=== PATIENT | female | born 1965 | race Caucasian/White ===

== ENCOUNTER 2016-11-16 06:48 | Inpatient (IN) | payer OTHER, MEDICAID ==
[2016-11-16] MEDS ORDERED: NS 1,000 ML IV ONE ×2 (07:01→07:59)
[2016-11-16 07:06] LABS: % IMMATURE GRANULYOCYTES 0.3 % (0.0-1.1); ABSOLUTE IMMATURE GRANULOCYTES 0.04 10^3/uL (0.00-0.10); ADD DIFF? NO; ADD MORPH? NO; ADD SCAN? NO; ATYPICAL LYMPHOCYTE FLAG 0 (0-99); FRAGMENT RBC FLAG 0 (0-99); HEMATOCRIT 47.2 % (38.0-47.0); HEMOGLOBIN 16.7 g/dL (12.6-16.3); LEFT SHIFT FLG 0 (0-99); LIPEMIA HEMOLYSIS FLAG 90 (0-99); MEAN CELL HEMOGLOBIN 31.7 pg (27.9-34.1); MEAN CELL HEMOGLOBIN CONCENTR. 35.4 g/dL (32.4-36.7); MEAN CELL VOLUME 89.7 fL (81.5-99.8); MEAN PLATELET VOLUME 10.1 fL (8.7-11.7); PLATELET CLUMPS FLAG 0 (0-99); PLATELET COUNT 330 10^3/uL (150-400); RED BLOOD CELL COUNT 5.26 10^6/uL (4.18-5.33); RED CELL DISTRIBUTION WIDTH 11.5 % (11.5-15.2)
[2016-11-16 07:15] LABS: INR 0.95 (0.83-1.16); PROTIME(PATIENT) 12.6 SEC (12.0-15.0)
[2016-11-16 07:16] LABS: APTT 25.2 SEC (23.0-38.0)
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
[2016-11-16 07:33] LABS: ALANINE AMINOTRANSFERASE 29 IU/L (9-52); ALBUMIN 4.1 g/dL (3.5-5.0); ALKALINE PHOSPHATASE 102 IU/L (38-126); ANION GAP 17 mEq/L (8-16); ASPARTATE AMINOTRANSFERASE 16 IU/L (14-46); BILIRUBIN,TOTAL 0.5 mg/dL (0.1-1.4); BILIRUBIN-CONJUGATED 0.2 mg/dL (0.0-0.5); BILIRUBIN-UNCONJUGATED 0.3 mg/dL (0.0-1.1); CALCIUM 9.6 mg/dL (8.5-10.4); CARBON DIOXIDE 19 mEq/l (22-31); CHLORIDE 101 mEq/L (97-110); GLOMERULAR FILTRATION RATE 58; POTASSIUM 4.7 mEq/L (3.5-5.2); SODIUM 137 mEq/L (134-144); TOTAL PROTEIN 7.5 g/dL (6.3-8.2)
[2016-11-16 07:43] LABS: GLUCOSE 510 mg/dL (70-100)
[2016-11-16] MEDS ORDERED: INSULIN REGULAR HUMAN 100 UNIT, COSIGN. REQUIRED 1 EA in NS 100 ML IV ONE (07:59)
[2016-11-16] MEDS ORDERED: INSULIN REGULAR HUMAN 100 UNIT/ML IVP ONE (07:59)
[2016-11-16 08:18] LABS: MAGNESIUM 1.9 mg/dL (1.6-2.3)
[2016-11-16 08:36] LABS: COLOR PALE YELLOW; LEUKOCYTE ESTERASE,URINE NEGATIVE (NEGATIVE); NITRITE,URINE NEGATIVE (NEGATIVE)
[2016-11-16 08:38] LABS: B-HYDROXYBUTYRATE 0.27 mmol/L (0.02-0.27)
[2016-11-16 09:35] LABS: ANION GAP 10 mEq/L (8-16); CALCIUM 8.2 mg/dL (8.5-10.4); CARBON DIOXIDE 20 mEq/l (22-31); CHLORIDE 111 mEq/L (97-110); CREATININE 0.8 mg/dL (0.6-1.0); GLOMERULAR FILTRATION RATE > 60; GLUCOSE 290 mg/dL (70-100); POTASSIUM 3.9 mEq/L (3.5-5.2); SODIUM 141 mEq/L (134-144)
[2016-11-16] MEDS ORDERED: ONDANSETRON DISINTEGRATING 4 MG TAB PO PRN (09:50)
[2016-11-16] MEDS ORDERED: ONDANSETRON 4 MG/2 ML VIAL IVP PRN (09:50)
[2016-11-16] MEDS ORDERED: D50W 25 GM/50 ML SYR IVP PRN (09:50)
[2016-11-16] MEDS ORDERED: TEMAZEPAM 15 MG CAP PO PRN (09:50)
[2016-11-16] MEDS ORDERED: hydrALAZINE 25 MG TAB PO PRN (09:58)
[2016-11-16] MEDS: INSULIN GLARGINE 100 UNITS/ML SYRINGE SC SCH (10:36)
[2016-11-16] MEDS ORDERED: POTASSIUM Cl (KCl) 10 MEQ/100 ML BAG IV ONE (10:38)
[2016-11-16] MEDS: POTASSIUM Cl (KCl) 100 ML IV SCH ×2 (10:47→13:58)
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
[2016-11-16] MEDS ORDERED: LISINOPRIL 20 MG TAB ONE (11:15)
[2016-11-16] MEDS ORDERED: IBUPROFEN 600 MG TAB PO ONE (11:15)
[2016-11-16] MEDS: IBUPROFEN 200 MG TAB PO PRN ×2 (11:18→21:12)
[2016-11-16] MEDS: LISINOPRIL 10 MG TAB PO SCH (11:18)
[2016-11-16 11:23] LABS: HEMOGLOBIN A1C 9.5 % (4.0-6.0)
[2016-11-16] MEDS: INSULIN LISPRO 100 UNIT/ML SC SCH ×2 (11:55→18:37)
[2016-11-16] MEDS: ACETAMINOPHEN 325 MG TAB PO PRN ×2 (14:03→21:05)
[2016-11-16] MEDS ORDERED: MAGNESIUM HYDROXIDE 30 ML UDCUP PO PRN (14:22)
[2016-11-16] MEDS ORDERED: BISACODYL 10 MG SUPP PR PRN (14:22)
[2016-11-16] MEDS ORDERED: LACTULOSE 20 GM/30 ML UDCUP PO PRN (14:22)
[2016-11-16] MEDS ORDERED: POLYETHYLENE GLYCOL 3350 17 GM PKT PO PRN (14:22)
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
[2016-11-16] MEDS: traMADol 50 MG TAB PO PRN (15:41)
[2016-11-16] MEDS: GABAPENTIN 300 MG CAP PO SCH ×2 (15:41→21:06)
[2016-11-16 15:55] LABS: ANION GAP 10 mEq/L (8-16); CALCIUM 8.6 mg/dL (8.5-10.4); CARBON DIOXIDE 21 mEq/l (22-31); CHLORIDE 108 mEq/L (97-110); CREATININE 0.7 mg/dL (0.6-1.0); GLOMERULAR FILTRATION RATE > 60; GLUCOSE 236 mg/dL (70-100); POTASSIUM 4.3 mEq/L (3.5-5.2); SODIUM 139 mEq/L (134-144)
[2016-11-16] MEDS: SENNOSIDES/DOCUSATE SODIUM TAB PO SCH (21:05)
[2016-11-16] MEDS: POTASSIUM Cl (KCl) 20 MEQ in 1/2 NS 1,000 ML IV SCH (21:54)
[2016-11-17 04:59] LABS: % IMMATURE GRANULYOCYTES 0.4 % (0.0-1.1); ABSOLUTE IMMATURE GRANULOCYTES 0.04 10^3/uL (0.00-0.10); ADD DIFF? NO; ADD MORPH? NO; ADD SCAN? NO; ATYPICAL LYMPHOCYTE FLAG 20 (0-99); FRAGMENT RBC FLAG 0 (0-99); HEMATOCRIT 45.7 % (38.0-47.0); HEMOGLOBIN 16.1 g/dL (12.6-16.3); LEFT SHIFT FLG 0 (0-99); LIPEMIA HEMOLYSIS FLAG 90 (0-99); MEAN CELL HEMOGLOBIN 32.1 pg (27.9-34.1); MEAN CELL HEMOGLOBIN CONCENTR. 35.2 g/dL (32.4-36.7); MEAN CELL VOLUME 91.2 fL (81.5-99.8); MEAN PLATELET VOLUME 9.7 fL (8.7-11.7); PLATELET CLUMPS FLAG 10 (0-99); PLATELET COUNT 299 10^3/uL (150-400); RED BLOOD CELL COUNT 5.01 10^6/uL (4.18-5.33); RED CELL DISTRIBUTION WIDTH 11.6 % (11.5-15.2)
[2016-11-17 05:05] LABS: ANION GAP 11 mEq/L (8-16); CALCIUM 8.9 mg/dL (8.5-10.4); CARBON DIOXIDE 23 mEq/l (22-31); CHLORIDE 104 mEq/L (97-110); CHOLESTEROL 202 mg/dL (140-220); CHOLESTEROL/HDL RATIO 3.88 RATIO (1.00-4.44); CREATININE 0.8 mg/dL (0.6-1.0); GLOMERULAR FILTRATION RATE > 60; GLUCOSE 237 mg/dL (70-100); HIGH DENSITY LIPOPROTEIN 52 mg/dL (40-85); LDL/HDL RATIO 2.21 RATIO (1.00-3.22); LOW DENSITY LIPOPROTEIN 115 mg/dL (80-100); NON-HIGH DENSITY LIPOPROTEIN 150 mg/dL (90-129); POTASSIUM 4.4 mEq/L (3.5-5.2); SODIUM 138 mEq/L (134-144); TRIGLYCERIDE 179 mg/dL (35-135); VERY LOW DENSITY LIPOPROTEINS 35 mg/dL (8-25)
[2016-11-17] MEDS: POTASSIUM Cl (KCl) 20 MEQ in 1/2 NS 1,000 ML IV SCH (05:19)
[2016-11-17] MEDS: INSULIN LISPRO 100 UNIT/ML SC SCH ×3 (10:01→17:43)
[2016-11-17] MEDS: LISINOPRIL 10 MG TAB PO SCH (10:02)
[2016-11-17] MEDS: SENNOSIDES/DOCUSATE SODIUM TAB PO SCH ×2 (10:02→21:13)
[2016-11-17] MEDS: GABAPENTIN 300 MG CAP PO SCH ×3 (10:02→21:43)
[2016-11-17] MEDS: INSULIN GLARGINE 100 UNITS/ML SYRINGE SC SCH (10:22)
[2016-11-17] MEDS: traMADol 50 MG TAB PO PRN ×2 (14:27→21:42)
[2016-11-17] MEDS: IBUPROFEN 200 MG TAB PO PRN (14:27)
[2016-11-17] MEDS: LIDOCAINE 5% 1 EA PATCH TD SCH (17:42)
--- NOTE | 2016-11-17 18:08 | HOSPPROG ---
Hospitalist Progress Note Assessment/Plan: DKA resolved - continue basal / bolus insulin, diabetic teaching. Left hip pain - Difficult to assess if lumbar in origin, will proceed with MRI hip/L spine. She apparently had a steroid injection a few months back and requests another one. Will await MR results and consider orthopedic consultation. She is unable to ambulate. Cont PT/OT, pain control. DVT PPLX - Lovenox Full code Dispo - change to inpt for acute PT/OT needs and pain control. Subjective: Pt extremely distressed in pain this am. She was unable to ambulate , crying and shaking, c/o left hip pain. She had a previous hip injectio which was helpful. No fevers. BG's better. Objective: Vital Signs Temp Pulse Resp BP Pulse Ox 36.9 C 68 18 155/102 H 94 11/17/16 16:00 11/17/16 16:00 11/17/16 16:00 11/17/16 16:00 11/17/16 16:00 Laboratory Results 11/17/16 04:32 11/17/16 04:32 11/16/16 11/17/16 11/18/16 05:59 05:59 05:59 Intake Total 3350 1000 Output Total 1375 900 Balance 1975 100 PT 12.6 SEC (12.0-15.0) 11/16/16 06:50 INR 0.95 (0.83-1.16) 11/16/16 06:50 - Physical Exam Constitutional: no apparent distress Eyes: PERRL Ears, Nose, Mouth, Throat: moist mucous membranes Respiratory: no respiratory distress Gastrointestinal: normoactive bowel sounds Musculoskeletal: other (minimal left greater trochanteric bursa tenderness. No pain with passive flexion of hip, +pain with external rotation. straight leg raising neg.) Neurologic: AAOx3 Psychiatric: interacting appropriately ICD10 Worksheet Patient Problems: Problems Problem Status Diagnosed Contusion of face Acute Contusion of hip, left Acute DKA (diabetic ketoacidoses) Acute
[2016-11-17] MEDS: PATCH REMOVAL 1 EA PATCH TD SCH (21:13)
--- NOTE | 2016-11-17 23:22 | MR ---
MRI of the Lumbar Spine (Without Contrast) Clinical Indications: Severe back pain and left gluteal region pain in a 51-year-old female who is u nable to ambulate. Technique: Sagittal and axial T1 and T2 MR sequences of the lumbar spine are performed, without cont rast. A sagittal STIR sequence was also obtained. Findings: There is reversal of the normal lumbar lordosis. There is mild anterior wedging of the L2 vertebral body, which appears chronic. There is a scoliotic curvature, convex towards the left side . There is fluid identified within the collapsed L2-L3 disk, and there is edema in the contiguous en dplates. There is no endplate erosion, and this is presumably degenerative change, with clinical cor relation suggested to exclude diskitis. Conus medullaris appears normal and ends at T12-L1. T12-L1: Negative for disk herniation, canal stenosis, or nerve root compression. There is minimal f acet hypertrophy, without neural foraminal impingement. L1-L2: Disk space loss occurs in conjunction with a mild diffuse disk bulge. Facet and ligamentous hypertrophy result in moderate central canal stenosis and bilateral lateral recess stenosis. No sign ificant neural foraminal impingement is seen. L2-L3: A diffuse disk bulge combines with facet hypertrophy resulting in central canal stenosis. Th ere is a prominent disk osteophyte complex. Again noted is fluid signal intensity within the disk sp alphonso, with clinical correlation suggested to exclude diskitis. L3-L4: Negative for disk herniation or canal stenosis. Hypertrophic facet changes are identified re sulting in mild lateral recess stenosis bilaterally, without neural foraminal impingement. L4-L5: A diffuse disk bulge combines with facet hypertrophy resulting in borderline canal stenosis a nd lateral recess stenosis. There is possible lateral disk herniation on the left side resulting in left neural foraminal impingement. L5-S1: A diffuse disk bulge is present, without canal stenosis or nerve root compression. Impressions 1. Multilevel degenerative changes are seen resulting in canal stenosis, lateral recess stenosis, an d neural foraminal impingement at multiple levels, as detailed above. 2. Fluid signal intensity at the L2-L3 disk level, with endplate edema of L2 and L3, probably degene rative in origin, with clinical correlation suggested to exclude diskitis. As clinically directed co ntrast-enhanced study could be obtained if diskitis is considered a possibility based on clinical fin dings. A preliminary report was called to the patient's healthcare provider, Dr. Francesco Mujica, at [address]
[2016-11-18 05:23] LABS: HEMATOCRIT 44.4 % (38.0-47.0)
[2016-11-18] MEDS ORDERED: INSULIN GLARGINE 100 UNITS/ML SYRINGE SC SCH (08:26)
[2016-11-18] MEDS ORDERED: D50W 25 GM/50 ML SYR IVP PRN (08:26)
[2016-11-18] MEDS: GABAPENTIN 300 MG CAP PO SCH ×3 (09:05→22:07)
[2016-11-18] MEDS: ACETAMINOPHEN 325 MG TAB PO PRN ×2 (09:21→13:53)
[2016-11-18] MEDS: traMADol 50 MG TAB PO PRN ×3 (09:21→19:56)
[2016-11-18] MEDS: LISINOPRIL 10 MG TAB PO SCH (09:21)
[2016-11-18] MEDS: methylPREDNISolone 4 MG TAB PO SCH ×4 (09:22→17:35)
[2016-11-18] MEDS: LIDOCAINE 5% 1 EA PATCH TD SCH (10:09)
[2016-11-18] MEDS: SENNOSIDES/DOCUSATE SODIUM TAB PO SCH ×2 (10:10→22:10)
[2016-11-18] MEDS: INSULIN LISPRO 100 UNIT/ML SC SCH ×3 (10:11→17:36)
--- NOTE | 2016-11-18 10:48 | HOSPPROG ---
Hospitalist Progress Note Assessment/Plan: DKA, resolved - continue basal / bolus insulin, diabetic teaching. Will up- titrate Lantus and Lispro today for bg's in 200's. Will likely need ongoing up- titration in setting of medrol dose pack starting today. Left hip pain - This seems to correspond to her degenerative disease in her lumbar spine and her L3-L4 bulging disc, canal narrowing and neuroforaminal narrowing may be the source. Clinically, I am not suspicious for diskitis. CRP normal, afebrile. No focal tenderness at L2-L3 or anywhere in her L spine. BCx's pending. MRI of hip reveals multi-focal tendinosis, which may also be contributory factor. discussed case with ortho, who does not recommend steroid injection. -Start medrol dose pack -Start Celebrex -Neurosurg consulted for opinion regarding DDD and Radiologic consideration of diskitis -If she develops more focal back pain, would consider contrast enhanced imaging to further evaluation for diskitis though again, suspicion for this is low at this time -Cont PT/OT, pain control DVT PPLX - Lovenox Full code Dispo - cont inpt for acute PT/OT needs and pain control. Subjective: Pt doing a little better today. She was able to ambulate to the BR after her MRI last night. Still has episdoes of severe pain in her left hip. No focal back pain. No fevers. Objective: Vital Signs Temp Pulse Resp BP Pulse Ox 36.9 C 69 16 158/94 H 95 11/18/16 07:42 11/18/16 07:42 11/18/16 07:42 11/18/16 09:21 11/18/16 07:42 Laboratory Results 11/18/16 04:33 11/17/16 11/18/16 11/19/16 05:59 05:59 05:59 Output Total 200 Balance -200 PT 12.6 SEC (12.0-15.0) 11/16/16 06:50 INR 0.95 (0.83-1.16) 11/16/16 06:50 - Physical Exam Constitutional: no apparent distress Eyes: PERRL Ears, Nose, Mouth, Throat: moist mucous membranes Cardiovascular: regular rate and rhythym Respiratory: no respiratory distress, clear to auscultation Gastrointestinal: normoactive bowel sounds, soft, non-tender abdomen Skin: warm Musculoskeletal: other (No verteberal or inter-vertebral disc tenderness of lumbar spine. Still with left gluteal pain worse with external rotataion) Neurologic: AAOx3, other (normal DTR's b/l LE's) Psychiatric: interacting appropriately ICD10 Worksheet Patient Problems: Problems Problem Status Diagnosed Contusion of face Acute Contusion of hip, left Acute DKA (diabetic ketoacidoses) Acute
--- NOTE | 2016-11-18 12:29 | MR ---
MRI of the left hip, without contrast. November 17, 2016 HISTORY: Severe left hip pain. Unable to ambulate. TECHNIQUE: Large [id number] axial and coronal MR sequences of the pelvis are followed by small fie ld-of-view sequences of the left hip in 3 planes. FINDINGS: Detailed imaging left hip is negative for labral tear or articular cartilage lesion. No significant h ip joint effusion. Ligamentum teres is intact. On large [id number] imaging, there is symmetric bilateral proximal hamstring tendinosis and perite ndinitis is at the initial tuberosities, slightly more pronounced on the left. Gluteal tendons appear intact over the greater trochanters, although there is evidence of mild gluteus minimus peritendinos is over the left greater trochanter. Sacroiliac joints appear unremarkable. Symphysis pubis is normal. Pelvic osseous structures appear no rmal. No pelvic masses or free fluid. IMPRESSION: 1. Proximal bilateral hamstring tendinosis and peritendinosis, left slightly greater than right. 2. Left gluteus minimus tendinopathy and peritendinosis at the greater trochanter.
[2016-11-18] MEDS: HYDROmorphONE/DILAUDID 1 MG/ML SYR IVP PRN (13:54)
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
[2016-11-18] MEDS: PATCH REMOVAL 1 EA PATCH TD SCH (22:10)
[2016-11-18] MEDS: DIAZEPAM 2 MG TAB PO PRN (23:15)
[2016-11-19] MEDS: traMADol 50 MG TAB PO PRN (05:09)
[2016-11-19] MEDS: DIAZEPAM 2 MG TAB PO PRN ×3 (05:18→21:37)
[2016-11-19 05:48] LABS: ANION GAP 13 mEq/L (8-16); CALCIUM 9.8 mg/dL (8.5-10.4); CARBON DIOXIDE 25 mEq/l (22-31); CHLORIDE 102 mEq/L (97-110); CREATININE 0.8 mg/dL (0.6-1.0); GLOMERULAR FILTRATION RATE > 60; GLUCOSE 324 mg/dL (70-100); POTASSIUM 5.3 mEq/L (3.5-5.2); SODIUM 140 mEq/L (134-144)
[2016-11-19] MEDS: methylPREDNISolone 4 MG TAB PO SCH ×3 (08:12→22:00)
[2016-11-19] MEDS: GABAPENTIN 300 MG CAP PO SCH ×2 (08:12→16:11)
[2016-11-19] MEDS: INSULIN LISPRO 100 UNIT/ML SC SCH ×3 (08:13→16:11)
[2016-11-19] MEDS: LISINOPRIL 10 MG TAB PO SCH (08:13)
[2016-11-19] MEDS: INSULIN GLARGINE 100 UNITS/ML SYRINGE SC SCH ×2 (08:14→09:00)
[2016-11-19] MEDS: LIDOCAINE 5% 1 EA PATCH TD SCH (09:52)
[2016-11-19] MEDS: SENNOSIDES/DOCUSATE SODIUM TAB PO SCH ×2 (09:53→21:42)
[2016-11-19] MEDS ORDERED: oxyCODONE IR 5 MG TAB PO ONE (09:54)
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
[2016-11-19] MEDS: HYDROmorphONE/DILAUDID 1 MG/ML SYR IVP PRN (13:00)
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
[2016-11-19] MEDS ORDERED: INSULIN GLARGINE 100 UNITS/ML SYRINGE SC SCH ×2 (17:24→22:30)
[2016-11-19] MEDS: KETOROLAC 30 MG/1 ML SDV IVP SCH ×2 (17:54→23:07)
[2016-11-19] MEDS ORDERED: GABAPENTIN 250 MG/5 ML 30 ML BOTTLE PO SCH (21:00)
[2016-11-19] MEDS ORDERED: methylPREDNISolone 4 MG TAB PO SCH (21:00)
[2016-11-19] MEDS: ACETAMINOPHEN 325 MG TAB PO PRN (21:37)
[2016-11-19] MEDS: PATCH REMOVAL 1 EA PATCH TD SCH (21:42)
[2016-11-20] MEDS: ACETAMINOPHEN 325 MG TAB PO PRN (04:26)
[2016-11-20] MEDS: KETOROLAC 30 MG/1 ML SDV IVP SCH ×2 (05:15→13:52)
[2016-11-20 05:40] LABS: ANION GAP 13 mEq/L (8-16); CALCIUM 9.6 mg/dL (8.5-10.4); CARBON DIOXIDE 25 mEq/l (22-31); CHLORIDE 104 mEq/L (97-110); GLOMERULAR FILTRATION RATE 58; GLUCOSE 192 mg/dL (70-100); POTASSIUM 4.9 mEq/L (3.5-5.2); SODIUM 142 mEq/L (134-144)
[2016-11-20] MEDS: DIAZEPAM 2 MG TAB PO PRN (05:54)
[2016-11-20 07:53] VITALS: RESP 14
[2016-11-20] MEDS: GABAPENTIN 300 MG CAP PO SCH ×2 (08:18→13:51)
[2016-11-20] MEDS: methylPREDNISolone 4 MG TAB PO SCH ×2 (08:18→13:52)
[2016-11-20] MEDS: LISINOPRIL 10 MG TAB PO SCH (08:18)
[2016-11-20] MEDS: SENNOSIDES/DOCUSATE SODIUM TAB PO SCH (08:19)
[2016-11-20] MEDS: LIDOCAINE 5% 1 EA PATCH TD SCH (08:19)
[2016-11-20] MEDS: INSULIN LISPRO 100 UNIT/ML SC SCH ×2 (08:50→12:39)
[2016-11-20] MEDS: HYDROmorphONE/DILAUDID 1 MG/ML SYR IVP PRN (10:30)
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
--- NOTE | 2016-11-20 11:33 | PDIAF ---
- Diagnosis Diagnosis: Diabetes, hypertension, hip pain, degenerative disease, tendinopathy Code Status: Full Code - Medication Management Discharge Medications: Medications to Continue on Transfer Acetaminophen [Tylenol 325mg (*)] 650 mg PO Q4HRS PRN #90 tab 11/20/16 [Last Taken Unknown] Gabapentin 600 mg PO TID #90 tablet 11/20/16 [Last Taken Unknown] Insulin Glargine,Hum.rec.anlog [Lantus Solostar] 18 unit SQ DAILY #10 ml [Last Taken Unknown] Insulin Lispro [Humalog Kwikpen U-100] 4 unit SQ AC #10 ml 11/20/16 [Last Taken Unknown] Lisinopril [Zestril 10 mg (*)] 10 mg PO DAILY #30 tab 11/20/16 [Last Taken Unknown] celeCOXIB [Celebrex (*)] 200 mg PO BID #60 cap 11/20/16 [Last Taken Unknown] methylPREDNISolone [Medrol Dose Pedro] 1 each PO AD #1 ea 11/20/16 [Last Taken Unknown] traMADol [Ultram 50 mg (*)] 25 - 50 mg PO Q6H PRN #30 tab 11/20/16 [Last Taken Unknown] Discharge Medications: Refer to the Discharge Home Medication list for PRN reason. PICC Care - Routine: N/A - Orders Services needed: Registered Nurse, Certified Formulator Compounder, Physical Therapy, Occupational Therapy Diet Recommendation: ADA 2000 consistent carb Activity/Weight Bearing Restrictions: WBAT - Labs/Radiology BMP Date: 11/22/16 (recheck potassium) - Follow Up Care Current Providers and Referrals: Reddy Coronado MD [Medical Doctor] - Patient,NotPresent [Unknown] - As per Instructions
[2016-11-20 15:40] VITALS: BP 141/87; PULSE 68; TEMP 97.8; O2SAT 95
[2016-11-21] MEDS ORDERED: methylPREDNISolone 4 MG TAB PO SCH (07:30)
[2016-11-22] MEDS ORDERED: methylPREDNISolone 4 MG TAB PO SCH (07:30)
[2016-11-23] MEDS ORDERED: methylPREDNISolone 4 MG TAB PO SCH (07:30)
== END 2016-11-20 17:18 | DRG 639 ==
LOC: F3N 11:23 → OBSVTOIN 11-17 18:10 → F3E 11-17 18:16
PROVIDERS: ADMIT Internal Medicine; ATTEND Hospitalist
DX: E13.10 Other specified diabetes mellitus with ketoacidosis without coma (principal); M47.816 Spondylosis without myelopathy or radiculopathy, lumbar region; S00.83XA Contusion of other part of head, initial encounter; M51.36 Other intervertebral disc degeneration, lumbar region; M76.892 Other specified enthesopathies of left lower limb, excluding foot; M51.26 Other intervertebral disc displacement, lumbar region; I10 Essential (primary) hypertension; Y04.8XXA Assault by other bodily force, initial encounter; Z59.0 Homelessness
CPT/HCPCS: 82947-QW; 96374; 97162-GP; 97166-GO; 97530-GO; 97530-GP; G0378; G8978-GP-CK; G8979-GP-CI; G8987-GO-CM; G8988-GO-CJ; J1170; J1815; J1885

== ENCOUNTER 2016-12-11 07:41 | Emergency (ER) | payer OTHER, MEDICAID ==
[2016-12-11 07:51] VITALS: TEMP 97.9
[2016-12-11] MEDS ORDERED: ONDANSETRON 4 MG/2 ML VIAL ONE (08:10)
--- NOTE | 2016-12-11 08:15 | CPEKG ---
Heart Rate: 77 RR Interval: 779 P-R Interval: 172 QRSD Interval: 82 QT Interval: 408 QTC Interval: 462 P [place]: 27 QRS [place]: 46 T Wave [place]: 58 EKG Severity - BORDERLINE ECG - EKG Impression: SINUS RHYTHM EKG Impression: PROBABLE LEFT ATRIAL ABNORMALITY Electronically Signed By: Nella Hillman 11-Dec-2016 14:59:13
[2016-12-11] MEDS ORDERED: NS 1,000 ML IV ONE ×2 (08:20→10:14)
[2016-12-11] MEDS ORDERED: ONDANSETRON 4 MG/2 ML VIAL IVP ONE ×2 (08:20→10:12)
[2016-12-11] MEDS ORDERED: FAMOTIDINE 20 MG/NACL 50 ML IV ONE (08:21)
[2016-12-11] MEDS ORDERED: HYDROmorphONE/DILAUDID 1 MG/ML SYR IVP ONE ×2 (08:21→09:58)
--- NOTE | 2016-12-11 08:34 | EDPHY ---
H & P Time Seen by Provider: 12/11/16 08:13 HPI/ROS: CHIEF COMPLAINT: vomiting/chest pain HISTORY OF PRESENT ILLNESS: Patient is a 51-year-old type 2 diabetic on insulin who presents to the emergency department with vomiting starting at approximately 5:00 a.m.. She has had numerous nonbloody episodes. She now has significant epigastric and substernal chest discomfort. This is worse when she vomits. It does not radiate. Patient has no leg pain or swelling. No recent travel. She has had mild cough for the past week. She denies fevers or chills. She has been unable to take her insulin this morning. REVIEW OF SYSTEMS: My complete review of systems is negative except as mentioned in the HPI. Past Medical/Surgical History: Includes diabetes, throat tumor, hypertension, staph, back pain Past surgical history: Includes hysterectomy, throat tumor removal Social history: The patient denies drug use. Smoking Status: Never smoked Physical Exam: Vitals noted. Afebrile. Heart rate 90. The patient did not have a blood pressure measured. I ordered vital signs GENERAL: mild acute distress, alert. HEENT: Eyes normal to inspection, normal pharynx, no signs of dehydration. NECK: No thyromegaly, no lymphadenopathy, supple. RESPIRATORY: Clear to auscultation bilaterally, no rales, rhonchi or wheezing. CVS: Regular rate and rhythm, no rubs, murmurs, or gallops. ABDOMEN: Soft, epigastric tenderness to palpation, nondistended, no organomegaly. BACK: Normal to inspection, no CVA tenderness. SKIN: Normal color, no rash, warm, dry. No pallor. EXTREMITIES: No pedal edema, no calf tenderness, no Homans sign or cords, no joint swelling. NEURO/PSYCH: Alert and oriented, normal mood and affect, normal motor sensory exam. Constitutional: Initial Vital Signs Temperature (C) 36.6 C 12/11/16 07:48 Heart Rate 90 12/11/16 07:48 Respiratory Rate 16 12/11/16 07:48 O2 Sat (%) 99 12/11/16 07:48 O2 Delivery Mode Room Air Allergies/Adverse Reactions: No Known Allergies Allergy (Unverified 12/11/16 07:51) Home Medications: Medication Instructions Recorded Acetaminophen [Tylenol 325mg (*)] 650 mg PO Q4HRS PRN #90 tab 11/20/16 Gabapentin 600 mg PO TID #90 tablet 11/20/16 Insulin Glargine,Hum.rec.anlog 18 unit SQ DAILY #10 ml 11/20/16 [Lantus Solostar] Insulin Lispro [Humalog Kwikpen 4 unit SQ AC #10 ml 11/20/16 U-100] Lisinopril [Zestril 10 mg (*)] 10 mg PO DAILY #30 tab 11/20/16 celeCOXIB [Celebrex (*)] 200 mg PO BID #60 cap 11/20/16 methylPREDNISolone [Medrol Dose 1 each PO AD #1 ea 11/20/16 Pedro] traMADol [Ultram 50 mg (*)] 25 - 50 mg PO Q6H PRN #30 tab 11/20/16 Ondansetron Odt [Zofran Odt 4 mg 4 mg PO Q4PRN PRN #7 tab 12/11/16 (*)] Medical Decision Making - Diagnostics EKG Interpretation: EKG shows normal sinus rhythm, normal rate, normal axis, normal intervals. There are no ST or T-wave abnormalities. EKG is normal as interpreted by me. ED Course/Re-evaluation: In the emergency department an IV was placed. Laboratory studies were ordered. Patient was given a L of normal saline for hydration. She was given Dilaudid 1 mg IV for pain control. She is given Zofran 4 mg IV for nausea. I discussed the plan with the patient and answered all her questions. Patient's laboratory studies were notable for a creatinine of 0.8. Sodium 139. Glucose 295. Anion gap was 16. Lipase 210. Troponin negative. LFTs were notable for mildly elevated conjugated bilirubin. I rechecked the patient. She initially felt better but then her pain returned. On repeat examination she describes epigastric discomfort. Patient was given Dilaudid 1 mg IV. 1135: The patient is feeling much better. She has no abdominal pain or chest pain. No shortness of breath. I discussed possible etiologies with the patient. She would like to be discharged home. She is given warnings prior to leaving. She will return with worsening symptoms. Differential Diagnosis: My differential includes but is not limited to pancreatitis, cholecystitis, cholangitis, ACS, acute PR, myocarditis, pericarditis, aortic aneurysm, aortic dissection, GERD, peptic ulcer disease, esophageal tear - Data Points Laboratory Results: Laboratory Results 12/11/16 08:05 12/11/16 08:05 12/11/16 12/11/16 10:00 08:05 WBC 13.85 H 10^3/uL (3.80-9.50) RBC 5.38 H 10^6/uL (4.18-5.33) Hgb 16.7 H g/dL (12.6-16.3) POC Hgb 16.7 H gm/dL (12.3-15.9) Hct 46.8 % (38.0-47.0) POC Hct 49 H % (35.5-47.5) MCV 87.0 fL (81.5-99.8) MCH 31.0 pg (27.9-34.1) MCHC 35.7 g/dL (32.4-36.7) RDW 12.0 % (11.5-15.2) Plt Count 337 10^3/uL (150-400) MPV 10.0 fL (8.7-11.7) Neut % (Auto) 80.5 H % (39.3-74.2) Lymph % (Auto) 14.9 L % (15.0-45.0) [place] % (Auto) 2.6 L % (4.5-13.0) Eos % (Auto) 0.1 L % (0.6-7.6) Baso % (Auto) 0.4 % (0.3-1.7) Nucleat RBC Rel Count 0.0 % (0.0-0.2) Absolute Neuts (auto) 11.13 H 10^3/uL (1.70-6.50) Absolute Lymphs (auto) 2.07 10^3/uL (1.00-3.00) Absolute Monos (auto) 0.36 10^3/uL (0.30-0.80) Absolute Eos (auto) 0.02 L 10^3/uL (0.03-0.40) Absolute Basos (auto) 0.06 10^3/uL (0.02-0.10) Absolute Nucleated RBC 0.00 10^3/uL (0-0.01) Immature Gran % 1.5 H % (0.0-1.1) Immature Gran # 0.21 H 10^3/uL (0.00-0.10) POC Sodium 139 mEq/L (134-144) Sodium 139 mEq/L (134-144) POC Potassium 4.2 mEq/L (3.3-5.0) Potassium 5.2 mEq/L (3.5-5.2) POC Chloride 104 mEq/L (96-108) Chloride 104 mEq/L (97-110) Carbon Dioxide 19 L mEq/l (22-31) Anion Gap 16 mEq/L (8-16) POC BUN 16 mg/dL (7-23) BUN 16 mg/dL (7-23) Creatinine 0.8 mg/dL (0.6-1.0) POC Creatinine 0.8 mg/dL (0.6-1.2) Estimated GFR > 60 Glucose 295 H mg/dL (70-100) POC Glucose 282 H mg/dL (70-100) Calcium 9.9 mg/dL (8.5-10.4) Total Bilirubin 1.1 mg/dL (0.1-1.4) Conjugated Bilirubin 0.8 H mg/dL (0.0-0.5) Unconjugated Bilirubin 0.3 mg/dL (0.0-1.1) AST 32 IU/L (14-46) ALT 23 IU/L (9-52) Alkaline Phosphatase 92 IU/L (38-126) Troponin I < 0.012 ng/mL (0-0.034) Total Protein 8.2 g/dL (6.3-8.2) Albumin 4.5 g/dL (3.5-5.0) Lipase 210.0 IU/L (23-300) Specimen Hemolysis 102 Urine Color YELLOW Urine Appearance CLEAR Urine pH 5.0 (5.0-7.5) Ur Specific [place] 1.018 (1.002-1.030) Urine Protein NEGATIVE (NEGATIVE) Urine Ketones 1+ H (NEGATIVE) Urine Blood NEGATIVE (NEGATIVE) Urine Nitrate NEGATIVE (NEGATIVE) Urine Bilirubin NEGATIVE (NEGATIVE) Urine Urobilinogen NEGATIVE EU (0.2-1.0) Ur Leukocyte Esterase NEGATIVE (NEGATIVE) Urine RBC NONE SEEN /hpf (0-3) Urine WBC 1-3 /hpf (0-3) Ur Epithelial Cells TRACE /lpf (NONE-1+) Urine Mucus TRACE /lpf (NONE-1+) Ur Culture Indicated? NOT INDICATED (NI) Urine Glucose 3+ H (NEGATIVE) Medications Given: Discontinued Medications Hydromorphone HCl (Dilaudid) 0.5 mg IVP EDNOW ONE Stop: 12/11/16 08:22 Last Admin: 12/11/16 08:30 Dose: 0.5 mg Hydromorphone HCl (Dilaudid) 1 mg IVP EDNOW ONE Stop: 12/11/16 09:59 Last Admin: 12/11/16 10:13 Dose: 1 mg Sodium Chloride (Ns) 1,000 mls @ 0 mls/hr IV ONCE ONE PRN Reason: Wide Open Stop: 12/11/16 08:21 Last Admin: 12/11/16 08:23 Dose: 1,000 mls Famotidine/Sodium Chloride (Pepcid 20 Mg (Premix)) 50 mls @ 200 mls/hr IV EDNOW ONE Stop: 12/11/16 08:35 Last Admin: 12/11/16 08:29 Dose: 50 mls Sodium Chloride (Ns) 1,000 mls @ 0 mls/hr IV ONCE ONE PRN Reason: Wide Open Stop: 12/11/16 10:15 Last Admin: 12/11/16 10:21 Dose: 1,000 mls Ondansetron HCl (Zofran) 4 mg IVP EDNOW ONE Stop: 12/11/16 08:21 Last Admin: 12/11/16 08:22 Dose: 4 mg Ondansetron HCl (Zofran) 4 mg IVP EDNOW ONE Stop: 12/11/16 10:13 Last Admin: 12/11/16 10:13 Dose: 4 mg Point of Care Test Results: 12/11/16 08:05 POC Sodium 139 POC Potassium 4.2 POC Chloride 104 POC BUN 16 POC Creatinine 0.8 POC Glucose 282 H Departure - Departure Disposition: Home, Routine, Self-Care Clinical Impression: Abdominal pain Qualifiers: Abdominal location: epigastric Qualifier Code: (R10.13) Epigastric pain Condition: Good Instructions: Acute Abdominal Pain (ED), Chest Pain (ED) Additional Instructions: Return with increasing pain, shortness of breath, fever, vomiting or any other concerns. Referrals: [facility] [Outside] - 3-4 days, if not improved Prescriptions: Ondansetron Odt [Zofran Odt 4 mg (*)] 4 mg PO Q4PRN PRN #7 tab PRN Reason: For Nausea & Vomiting
[2016-12-11 08:55] LABS: % IMMATURE GRANULYOCYTES 1.5 % (0.0-1.1); ABSOLUTE IMMATURE GRANULOCYTES 0.21 10^3/uL (0.00-0.10); ADD DIFF? NO; ADD MORPH? NO; ADD SCAN? NO; ATYPICAL LYMPHOCYTE FLAG 10 (0-99); FRAGMENT RBC FLAG 0 (0-99); HEMATOCRIT 46.8 % (38.0-47.0); HEMOGLOBIN 16.7 g/dL (12.6-16.3); LEFT SHIFT FLG 20 (0-99); LIPEMIA HEMOLYSIS FLAG 90 (0-99); MEAN CELL HEMOGLOBIN CONCENTR. 35.7 g/dL (32.4-36.7); PLATELET CLUMPS FLAG 0 (0-99); PLATELET COUNT 337 10^3/uL (150-400); RED BLOOD CELL COUNT 5.38 10^6/uL (4.18-5.33)
[2016-12-11 09:04] LABS: ALANINE AMINOTRANSFERASE 23 IU/L (9-52); ALBUMIN 4.5 g/dL (3.5-5.0); ALKALINE PHOSPHATASE 92 IU/L (38-126); ANION GAP 16 mEq/L (8-16); ASPARTATE AMINOTRANSFERASE 32 IU/L (14-46); BILIRUBIN,TOTAL 1.1 mg/dL (0.1-1.4); BILIRUBIN-CONJUGATED 0.8 mg/dL (0.0-0.5); BILIRUBIN-UNCONJUGATED 0.3 mg/dL (0.0-1.1); CALCIUM 9.9 mg/dL (8.5-10.4); CARBON DIOXIDE 19 mEq/l (22-31); CHLORIDE 104 mEq/L (97-110); CREATININE 0.8 mg/dL (0.6-1.0); GLOMERULAR FILTRATION RATE > 60; GLUCOSE 295 mg/dL (70-100); POTASSIUM 5.2 mEq/L (3.5-5.2); SODIUM 139 mEq/L (134-144); SPECIMEN HEMOLYSIS 102; TOTAL PROTEIN 8.2 g/dL (6.3-8.2)
--- NOTE | 2016-12-11 09:13 | DX ---
Chest, PA and Lateral Views, at 8:25 AM Clinical History: 51-year-old female with vomiting, chest pain, and chills. Comparison Study: None. Findings: Telemetry monitoring lead lines are present. The cardiac and mediastinal silhouette is norm al in size. There is no focal infiltrate, atelectasis, pleural effusion, peripheral interstitial yaw a, or pneumothorax. The osseous structures are notable for an old healed left seventh anterior rib fr acture deformity. There are degenerative features thoracic spine to the thoracolumbar junction. There are surgical clips in the right upper abdomen, and to the left of the trachea. The patient's arms ob scure a portion of the anterior and central mediastinal structures on the lateral view. Impression: No acute abnormality.
[2016-12-11 09:14] LABS: TROPONIN I < 0.012 ng/mL (0-0.034)
[2016-12-11] MEDS ORDERED: HYDROmorphONE/DILAUDID 1 MG/ML SYR ONE (09:57)
[2016-12-11 10:19] LABS: COLOR YELLOW; LEUKOCYTE ESTERASE,URINE NEGATIVE (NEGATIVE); NITRITE,URINE NEGATIVE (NEGATIVE)
[2016-12-11 10:38] LABS: MUCUS TRACE /lpf (NONE-1+)
[2016-12-11 10:42] LABS: RBC,URINE NONE SEEN /hpf (0-3)
[2016-12-11 12:10] VITALS: BP 125/84; PULSE 76; RESP 14; O2SAT 97
== END 2016-12-11 12:10 | disposition home or self-care (01) ==
DX: R10.13 Epigastric pain (principal); E11.9 Type 2 diabetes mellitus without complications; I10 Essential (primary) hypertension; Z79.4 Long term (current) use of insulin; Z90.710 Acquired absence of both cervix and uterus
CPT/HCPCS: 71020; 96361; 96365; 96375; 96376; 99285; J1170; J2405; 82947-QW

== ENCOUNTER 2016-12-30 16:33 | Emergency (ER) | payer OTHER, MEDICAID ==
[2016-12-30] MEDS ORDERED: NS 1,000 ML IV ONE (16:55)
--- NOTE | 2016-12-30 16:55 | EDPHY ---
H & P Time Seen by Provider: 12/30/16 16:47 HPI/ROS: CHIEF COMPLAINT: Hyperglycemia HISTORY OF PRESENT ILLNESS: This patient is a homeless 51 year old female with a history of type 2 diabetes who presents to the Emergency Department with hyperglycemia as measured by her glucometer. She was admitted to the hospital in October for diabetic ketoacidosis. She reports that she used insulin immediately following diagnosis in 2004 but has been taking 100mg Januvia daily for the past two years. She denies recent insulin use, although she was directed to begin taking insulin when discharged home following hospital admission in October, and tells me she "never got a script for it." She does not know how long her blood sugar has been elevated as her glucometer just arrived. She reports no complaints secondary to hyperglycemia. She denies shortness of breath, nausea, or urinary complaints. She has been sick over the past few weeks with cough and nasal congestion. She also complains of a mass to her right groin. REVIEW OF SYSTEMS: Constitutional: No fever, no chills Eyes: No visual changes ENT: No sore throat Respiratory: +cough, no shortness of breath Cardiac: No chest pain Gastrointestinal: No nausea, no vomiting, no abdominal pain Genitourinary: +right groin mass, no hematuria, no dysuria Musculoskeletal: No leg pain or swelling Skin: No rash Neurological: No headache, no numbness, no weakness Psychiatric: No depression Past Medical/Surgical History: Prior medical records reviewed by myself, including most recent visit to the ED on 12/11/2016 for vomiting and admission in 10/2016 for DKA. Type II diabetes, throat tumor with surgical removal, hypertension, staph infection, chronic back pain, hysterectomy. Social History: Never smoked. No drug use. Homeless. Smoking Status: Never smoked Physical Exam: General Appearance: Alert, no distress Eyes: Pupils equal and round, no conjunctival pallor or injection ENT, Mouth: Mucous membranes moist Neck: Normal inspection Respiratory: Frequent cough Cardiovascular: Regular rate and rhythm Gastrointestinal: Abdomen is obese, soft and non- tender. 1cm firm mass in right groin without fluctuance or overlying erythema Neurological: A&O, nonfocal, normal gait Skin: Warm and dry, no rash Extremities: Nontender, no pedal edema Psychiatric: Mood and affect normal Constitutional: Initial Vital Signs Temperature (C) 36.5 C 12/30/16 16:35 Heart Rate 79 03/04/17 16:35 Respiratory Rate 15 12/30/16 16:35 Blood Pressure 115/92 H 12/30/16 16:35 O2 Sat (%) 96 12/30/16 16:35 O2 Delivery Mode Room Air Allergies/Adverse Reactions: No Known Allergies Allergy (Unverified 12/11/16 07:51) Home Medications: Medication Instructions Recorded Acetaminophen [Tylenol 325mg (*)] 650 mg PO Q4HRS PRN #90 tab 11/20/16 Gabapentin 600 mg PO TID #90 tablet 11/20/16 Lisinopril [Zestril 10 mg (*)] 10 mg PO DAILY #30 tab 11/20/16 celeCOXIB [Celebrex (*)] 200 mg PO BID #60 cap 11/20/16 methylPREDNISolone [Medrol Dose 1 each PO AD #1 ea 11/20/16 Pedro] traMADol [Ultram 50 mg (*)] 25 - 50 mg PO Q6H PRN #30 tab 11/20/16 Ondansetron Odt [Zofran Odt 4 mg 4 mg PO Q4PRN PRN #7 tab 12/11/16 (*)] Insulin Glargine,Hum.rec.anlog 18 unit SQ DAILY #1 btl 12/30/16 [Lantus Solostar] Insulin Lispro [Humalog] 4 unit SQ AC #1 btl 12/30/16 Januvia 100 MG (*) 12/30/16 Medical Decision Making - Diagnostics Imaging: Study: X-ray of the chest Indication: Cough Results: X-ray of the chest was obtained. The results of the study are: non- acute. No changes since previous on 11/2016. The study was read by the radiologist, Dr. Pantera Forde. I viewed the images myself on the PACS system. ED Course/Re-evaluation: This patient presents concerned of an elevated blood sugar reading as measured by her glucometer. She has no complaints associated with hyperglycemia or suggestive of DKA. She was seen in the ED and admitted in October for DKA; based on her discharge summary report, she was sent home with insulin to take and instructions to follow-up with [facility]. Today, she denies insulin use and states that she never followed up with [facility] as directed. She denies receiving a script for insulin. i-Stat obtained. BGL is measured at 437. 8 units IV insulin administered. The patient also presents with a frequent cough that she attributes to being sick over the past two weeks. Will proceed with chest x-ray and treat with 3ml IH DuoNeb. I discussed the patient's case with physician on staff at [facility] and plan to arrange for follow-up appointment with [facility] on Sunday to ensure that the patient begins taking insulin as instructed. She will be discharged home with script for Insulin to begin taking immediately and instructions to stop taking Januvia. I discussed this plan with her, and she is agreeable to this. Differential Diagnosis: Differential diagnosis includes limited to diabetic ketoacidosis, pneumonia, hypoxia, bronchospasm, dehydration - Data Points Laboratory Results: Laboratory Results 12/30/16 16:55 12/30/16 16:55 Medications Given: Discontinued Medications Albuterol/Ipratropium (Duoneb) 3 ml IH EDNOW ONE Stop: 12/30/16 17:20 Last Admin: 12/30/16 17:39 Dose: 3 ml Benzonatate (Tessalon Pearles) 100 mg PO EDNOW ONE Stop: 12/30/16 18:07 Last Admin: 12/30/16 18:16 Dose: 100 mg Sodium Chloride (Ns) 1,000 mls @ 0 mls/hr IV ONCE ONE PRN Reason: Wide Open Stop: 12/30/16 16:56 Last Admin: 12/30/16 16:57 Dose: 1,000 mls Insulin Human Regular (Humulin R) 8 unit IVP EDNOW ONE Stop: 12/30/16 17:23 Last Admin: 12/30/16 17:39 Dose: 8 units Departure - Departure Disposition: Home, Routine, Self-Care Clinical Impression: Hyperglycemia due to type 2 diabetes mellitus Qualifiers: Diabetes mellitus office helper clerical insulin use: without office helper clerical use Qualified Code(s ): E11.65 - Type 2 diabetes mellitus with hyperglycemia Condition: Good Instructions: Diabetic Hyperglycemia (ED) Additional Instructions: 1. Follow up on Sunday with [facility] as we discussed. It is very important that you attend this appointment in order to manage your blood sugar levels going forward. 2. Stop taking Januvia. You should start taking Insulin as prescribed. 3. Return to the Emergency Department if you experience lightheadedness, weakness, heart palpitations, nausea, or other serious concerns. Referrals: [facility],. [Primary Care Provider] - As per Instructions Prescriptions: Insulin Glargine,Hum.rec.anlog [Lantus Solostar] 18 unit SQ DAILY #1 btl Insulin Lispro [Humalog] 4 unit SQ AC #1 btl Report Scribed for: Bonny Bray Report Scribed by: Cheryl Mendiola Date of Report: 12/30/16 Time of Report: 16:55 Physician Review and Approval Statement: 12/30/16 16:55 Portions of this note were transcribed by a medical csr. I personally performed a history, physical exam, medical decision making, and confirmed accuracy of information the transcribed note.
[2016-12-30 17:11] LABS: % IMMATURE GRANULYOCYTES 0.5 % (0.0-1.1); ABSOLUTE IMMATURE GRANULOCYTES 0.06 10^3/uL (0.00-0.10); ADD DIFF? NO; ADD MORPH? NO; ADD SCAN? NO; ATYPICAL LYMPHOCYTE FLAG 20 (0-99); FRAGMENT RBC FLAG 0 (0-99); HEMATOCRIT 44.9 % (38.0-47.0); HEMOGLOBIN 15.9 g/dL (12.6-16.3); LEFT SHIFT FLG 0 (0-99); LIPEMIA HEMOLYSIS FLAG 90 (0-99); MEAN CELL HEMOGLOBIN 31.7 pg (27.9-34.1); MEAN CELL HEMOGLOBIN CONCENTR. 35.4 g/dL (32.4-36.7); MEAN CELL VOLUME 89.6 fL (81.5-99.8); PLATELET CLUMPS FLAG 10 (0-99); PLATELET COUNT 333 10^3/uL (150-400); RED BLOOD CELL COUNT 5.01 10^6/uL (4.18-5.33); RED CELL DISTRIBUTION WIDTH 12.4 % (11.5-15.2)
[2016-12-30] MEDS ORDERED: IPRATROPIUM/ALBUTEROL 3 ML DEYVIAL IH ONE (17:19)
[2016-12-30] MEDS ORDERED: INSULIN REGULAR HUMAN 100 UNIT/ML IVP ONE (17:22)
[2016-12-30 17:40] LABS: ANION GAP 13 mEq/L (8-16); CALCIUM 9.8 mg/dL (8.5-10.4); CARBON DIOXIDE 22 mEq/l (22-31); CHLORIDE 103 mEq/L (97-110); GLOMERULAR FILTRATION RATE 58; GLUCOSE 444 mg/dL (70-100); MAGNESIUM 2.1 mg/dL (1.6-2.3); POTASSIUM 4.6 mEq/L (3.5-5.2); SODIUM 138 mEq/L (134-144)
[2016-12-30] MEDS ORDERED: BENZONATATE 100 MG CAP PO ONE (18:06)
[2016-12-30 18:18] LABS: B-HYDROXYBUTYRATE 0.22 mmol/L (0.02-0.27)
[2016-12-30 18:56] VITALS: BP 115/78; PULSE 87; RESP 16; TEMP 97.5; O2SAT 97
== END 2016-12-30 18:56 | disposition home or self-care (01) ==
DX: E11.65 Type 2 diabetes mellitus with hyperglycemia (principal); I10 Essential (primary) hypertension; Z79.4 Long term (current) use of insulin
CPT/HCPCS: 71020; 96361; 96374; 99284; J1815; 82947-QW

== ENCOUNTER 2017-02-02 07:45 | Observation (INO) | payer OTHER, MEDICAID ==
[2017-02-02] MEDS ORDERED: NS 1,000 ML IV ONE (07:49)
--- NOTE | 2017-02-02 07:51 | EDPHY ---
H & P Time Seen by Provider: 02/02/17 07:47 HPI/ROS: CHIEF COMPLAINT: Chest pain, vomiting, diarrhea, abdominal pain HISTORY OF PRESENT ILLNESS: The patient is a homeless diabetic who presents to the ED with chest pain, abdominal pain, vomiting and diarrhea for the past 3 days. The patient is had difficulty maintaining her blood sugars. She has been using her insulin sporadically. The patient denies fever, cough or congestion. The patient has a history of hypertension but denies coronary artery disease. The patient denies recent antibiotic use. The patient reports that her chest pain is likely secondary to vomiting. Her symptoms are moderate to severe in nature. REVIEW OF SYSTEMS: A comprehensive 10 point review of systems is otherwise negative aside from elements mentioned in the history of present illness. Source: Patient Exam Limitations: No limitations - Medical/Surgical History Hx Asthma: No Hx Chronic Respiratory Disease: No Hx Diabetes: Yes Hx Cardiac Disease: No Hx Renal Disease: No Hx Cirrhosis: No Hx Alcoholism: No Hx HIV/AIDS: No Hx Splenectomy or Spleen Trauma: No Other PMH: dm. hysterectomy. 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 HTN. staph inf in L leg - Social History Smoking Status: Never smoked - Physical Exam Exam: General Appearance: Alert, obese, mild discomfort Eyes: Pupils equal and round no pallor or injection ENT, Mouth: Mucous membranes moist Respiratory: There are no retractions, lungs are clear to auscultation Cardiovascular: Regular rate and rhythm Gastrointestinal: Protuberant, minimal tenderness which is poorly localized, no peritoneal signs Neurological: A&O, normal motor function, normal sensory exam, normal cranial nerves Skin: Warm and dry, no rashes Musculoskeletal: Neck is supple nontender Extremities: symmetrical, full range of motion Constitutional: Initial Vital Signs Temperature (C) 36.4 C 02/02/17 07:49 Heart Rate 90 02/02/17 07:49 Respiratory Rate 24 H 02/02/17 07:49 Blood Pressure 155/110 H 02/02/17 07:49 O2 Sat (%) 96 02/02/17 07:49 O2 Delivery Mode Room Air Allergies/Adverse Reactions: No Known Allergies Allergy (Verified 02/02/17 07:48) Home Medications: Medication Instructions Recorded Acetaminophen [Tylenol 325mg (*)] 650 mg PO Q4HRS PRN #90 tab 11/20/16 Gabapentin 600 mg PO TID #90 tablet 11/20/16 Lisinopril [Zestril 10 mg (*)] 10 mg PO DAILY #30 tab 11/20/16 traMADol [Ultram 50 mg (*)] 25 - 50 mg PO Q6H PRN #30 tab 11/20/16 Insulin Glargine,Hum.rec.anlog 18 unit SQ DAILY #1 btl 12/30/16 [Lantus Solostar] Insulin Lispro [Humalog] 4 unit SQ AC #1 btl 12/30/16 Ondansetron Odt [Zofran Odt] 4 mg PO Q4PRN PRN #20 tab 02/02/17 Medical Decision Making - Diagnostics EKG Interpretation: EKG: Complete interpretation has been separately recorded in the [employer] archive. Summary impression: Sinus rhythm, rate 80, no ischemic changes noted ED Course/Re-evaluation: I reviewed the patient's past medical records, she was admitted to the hospital in October with DKA. She has been seen in the emergency department twice since then with complaints of vomiting and elevated blood sugars. The patient is noted to have a blood sugar of 176 in the ED. She has no evidence of significant acidosis. The patient presents to the ED with gastroenteritis symptoms. The patient did complain of chest pain from vomiting. Her EKG demonstrates no evidence of ischemia. The patient has had multiple episodes of nonbloody diarrhea in the ED. She has been to the bathroom approximately 6 times in 2 hours. I do feel that because the patient is homeless we should admit her for observation this evening. The patient is currently living out of her car and given the sure volume of profuse watery diarrhea that she is having I feel she would be better served in inpatient observation unit this evening. Consultation is made with the hospitalist service at 9:40 a.m.. The patient will be admitted to the E[facility] this evening by Dr. Lexa Gonzalez. Differential Diagnosis: Differential diagnosis considered includes diabetic ketoacidosis, acute coronary syndrome, metabolic abnormality, dehydration, gastroenteritis - Data Points Laboratory Results: Laboratory Results 02/02/17 07:55 02/02/17 07:55 02/02/17 02/02/17 07:55 07:55 WBC 13.58 10^3/uL H 10^3/uL (3.80-9.50) RBC 5.21 10^6/uL 10^6/uL (4.18-5.33) Hgb 16.1 g/dL g/dL (12.6-16.3) Hct 46.3 % % (38.0-47.0) MCV 88.9 fL fL (81.5-99.8) MCH 30.9 pg pg (27.9-34.1) MCHC 34.8 g/dL g/dL (32.4-36.7) RDW 12.9 % % (11.5-15.2) Plt Count 352 10^3/uL 10^3/uL (150-400) MPV 9.4 fL fL (8.7-11.7) Neut % (Auto) 76.0 % H % (39.3-74.2) Lymph % (Auto) 17.7 % % (15.0-45.0) [place] % (Auto) 4.3 % L % (4.5-13.0) Eos % (Auto) 1.3 % % (0.6-7.6) Baso % (Auto) 0.2 % L % (0.3-1.7) Nucleat RBC Rel Count 0.0 % % (0.0-0.2) Absolute Neuts (auto) 10.32 10^3/uL H 10^3/uL (1.70-6.50) Absolute Lymphs (auto) 2.40 10^3/uL 10^3/uL (1.00-3.00) Absolute Monos (auto) 0.58 10^3/uL 10^3/uL (0.30-0.80) Absolute Eos (auto) 0.18 10^3/uL 10^3/uL (0.03-0.40) Absolute Basos (auto) 0.03 10^3/uL 10^3/uL (0.02-0.10) Absolute Nucleated RBC 0.00 10^3/uL 10^3/uL (0-0.01) Immature Gran % 0.5 % % (0.0-1.1) Immature Gran # 0.07 10^3/uL 10^3/uL (0.00-0.10) Sodium 140 mEq/L mEq/L (134-144) Potassium 4.3 mEq/L mEq/L (3.5-5.2) Chloride 105 mEq/L mEq/L (97-110) Carbon Dioxide 20 mEq/l L mEq/l (22-31) Anion Gap 15 mEq/L mEq/L (8-16) BUN 23 mg/dL mg/dL (7-23) Creatinine 0.9 mg/dL mg/dL (0.6-1.0) Estimated GFR > 60 Glucose 176 mg/dL H mg/dL (70-100) Calcium 10.2 mg/dL mg/dL (8.5-10.4) Medications Given: Discontinued Medications Sodium Chloride (Ns) 1,000 mls @ 0 mls/hr IV ONCE ONE PRN Reason: Wide Open Stop: 02/02/17 07:50 Last Admin: 02/02/17 08:17 Dose: 1,000 mls Departure - Departure Disposition: [facility] Acute Clinical Impression: Gastroenteritis, Dehydration Condition: Good Prescriptions: Ondansetron Odt [Zofran Odt] 4 mg PO Q4PRN PRN #20 tab PRN Reason: For Nausea
--- NOTE | 2017-02-02 08:00 | CPEKG ---
Heart Rate: 80 RR Interval: 750 P-R Interval: 148 QRSD Interval: 84 QT Interval: 396 QTC Interval: 457 P [place]: 6 QRS [place]: 68 T Wave [place]: 59 EKG Severity - BORDERLINE ECG - EKG Impression: SINUS RHYTHM Electronically Signed By: Gustavo Rodriguez 02-Feb-2017 08:23:58
[2017-02-02 08:13] LABS: % IMMATURE GRANULYOCYTES 0.5 % (0.0-1.1); ABSOLUTE IMMATURE GRANULOCYTES 0.07 10^3/uL (0.00-0.10); ADD DIFF? NO; ADD MORPH? NO; ADD SCAN? NO; ATYPICAL LYMPHOCYTE FLAG 30 (0-99); FRAGMENT RBC FLAG 0 (0-99); HEMATOCRIT 46.3 % (38.0-47.0); HEMOGLOBIN 16.1 g/dL (12.6-16.3); LEFT SHIFT FLG 0 (0-99); LIPEMIA HEMOLYSIS FLAG 90 (0-99); MEAN CELL HEMOGLOBIN 30.9 pg (27.9-34.1); MEAN CELL HEMOGLOBIN CONCENTR. 34.8 g/dL (32.4-36.7); MEAN CELL VOLUME 88.9 fL (81.5-99.8); MEAN PLATELET VOLUME 9.4 fL (8.7-11.7); PLATELET CLUMPS FLAG 0 (0-99); PLATELET COUNT 352 10^3/uL (150-400); RED BLOOD CELL COUNT 5.21 10^6/uL (4.18-5.33); RED CELL DISTRIBUTION WIDTH 12.9 % (11.5-15.2)
[2017-02-02 08:32] LABS: ANION GAP 15 mEq/L (8-16); CALCIUM 10.2 mg/dL (8.5-10.4); CARBON DIOXIDE 20 mEq/l (22-31); CHLORIDE 105 mEq/L (97-110); CREATININE 0.9 mg/dL (0.6-1.0); GLOMERULAR FILTRATION RATE > 60; GLUCOSE 176 mg/dL (70-100); POTASSIUM 4.3 mEq/L (3.5-5.2); SODIUM 140 mEq/L (134-144)
[2017-02-02] MEDS ORDERED: ACETAMINOPHEN 325 MG TAB PO PRN (10:41)
[2017-02-02] MEDS ORDERED: IBUPROFEN 600 MG TAB PO PRN (10:41)
[2017-02-02] MEDS ORDERED: D50W 25 GM/50 ML SYR IVP PRN (10:43)
[2017-02-02] MEDS ORDERED: PROMETHAZINE HCL 25 MG TAB PO PRN (10:43)
--- NOTE | 2017-02-02 12:26 | PDGENHP ---
History and Physical - Chief Complaint Acute diarrhea - History of Present Illness PCP: [facility] HPI: 51-year-old female presenting with acute diarrhea characterized as profuse , watery stool with associated abdominal cramping located in the bilateral upper abdomen, nausea vomiting, onset of symptoms approximately 4 days ago and duration persistent thereafter. She reports that symptoms have been somewhat alleviated by Phenergan and Zofran but the frequent loose bowel movements continue. Per emergency department report, the patient has had nearly constant watery bowel movements in the emergency department. She has been attempting to maintain good oral intake during this interval but feels like she is getting dehydrated. Prior to onset of symptoms, the patient had otherwise been feeling well. She does report 1 other episode of this a couple months ago. History Information - Allergies/Home Medication List Allergies/Adverse Reactions: No Known Allergies Allergy (Verified 02/02/17 07:48) Home Medications: Albuterol Sulfate [Proair Hfa] 1 - 2 puffs IH Q4 PRN 02/02/17 [Last Taken Unknown] Insulin Aspart [Novolog Flexpen] 6 - 10 unit SQ TIDMEAL 02/02/17 [Last Taken Unknown] Insulin Glargine,Hum.rec.anlog [Lantus Solostar] 24 unit SQ HS 02/02/17 [Last Taken Unknown] Lisinopril [Zestril 20 mg (*)] 20 mg PO DAILY 02/02/17 [Last Taken Unknown] I have personally reviewed and updated: family history, medical history, social history, surgical history - Past Medical History diabetes type 2 (Mealtime bolus insulin, at bedtime Lantus), hypertension - Surgical History Reports: cholecystectomy - Family History Additional family history: Mother with pancreatic cancer - Social History Smoking Status: Never smoked Alcohol Use: None Drug Use: Marijuana, Other (Previous Addiction Valium at age 12, none since) Review of Systems ROS: 10pt was reviewed & negative except for what was stated in HPI & below Gastrointestinal: Reports: vomitting, diarrhea, nausea Physical Exam Temp Pulse Resp BP Pulse Ox 36.8 C 88 16 132/88 H 98 02/02/17 10:00 02/02/17 10:41 02/02/17 10:00 02/02/17 10:41 02/02/17 10:00 Constitutional: no apparent distress, not in pain, chronically ill appearing, uncomfortable Eyes: PERRL, anicteric sclera, EOMI Ears, Nose, Mouth, Throat: moist mucous membranes, hearing normal, ears appear normal, no oral mucosal ulcers Cardiovascular: tachycardia, No systolic murmur, No irregularly irregular, No edema Respiratory: no respiratory distress, no rales or rhonchi, clear to auscultation Gastrointestinal: no palpable masses, tenderness (Midepigastric area), other ( Hyperactive bowel sounds), No guarding Neurologic: AAOx3, No facial droop Psychiatric: interacting appropriately, not anxious, not encephalopathic, thought process linear Lab Data & Imaging Review 02/02/17 07:55 02/02/17 07:55 WBC 13.58 10^3/uL (3.80-9.50) H 02/02/17 07:55 RBC 5.21 10^6/uL (4.18-5.33) 02/02/17 07:55 Hgb 16.1 g/dL (12.6-16.3) 02/02/17 07:55 Hct 46.3 % (38.0-47.0) 02/02/17 07:55 MCV 88.9 fL (81.5-99.8) 02/02/17 07:55 MCH 30.9 pg (27.9-34.1) 02/02/17 07:55 MCHC 34.8 g/dL (32.4-36.7) 02/02/17 07:55 RDW 12.9 % (11.5-15.2) 02/02/17 07:55 Plt Count 352 10^3/uL (150-400) 02/02/17 07:55 MPV 9.4 fL (8.7-11.7) 02/02/17 07:55 Neut % (Auto) 76.0 % (39.3-74.2) H 02/02/17 07:55 Lymph % (Auto) 17.7 % (15.0-45.0) 02/02/17 07:55 [place] % (Auto) 4.3 % (4.5-13.0) L 02/02/17 07:55 Eos % (Auto) 1.3 % (0.6-7.6) 02/02/17 07:55 Baso % (Auto) 0.2 % (0.3-1.7) L 02/02/17 07:55 Nucleat RBC Rel Count 0.0 % (0.0-0.2) 02/02/17 07:55 Absolute Neuts (auto) 10.32 10^3/uL (1.70-6.50) H 02/02/17 07:55 Absolute Lymphs (auto) 2.40 10^3/uL (1.00-3.00) 02/02/17 07:55 Absolute Monos (auto) 0.58 10^3/uL (0.30-0.80) 02/02/17 07:55 Absolute Eos (auto) 0.18 10^3/uL (0.03-0.40) 02/02/17 07:55 Absolute Basos (auto) 0.03 10^3/uL (0.02-0.10) 02/02/17 07:55 Absolute Nucleated RBC 0.00 10^3/uL (0-0.01) 02/02/17 07:55 Immature Gran % 0.5 % (0.0-1.1) 02/02/17 07:55 Immature Gran # 0.07 10^3/uL (0.00-0.10) 02/02/17 07:55 Sodium 140 mEq/L (134-144) 02/02/17 07:55 Potassium 4.3 mEq/L (3.5-5.2) 02/02/17 07:55 Chloride 105 mEq/L (97-110) 02/02/17 07:55 Carbon Dioxide 20 mEq/l (22-31) L 02/02/17 07:55 Anion Gap 15 mEq/L (8-16) 02/02/17 07:55 BUN 23 mg/dL (7-23) 02/02/17 07:55 Creatinine 0.9 mg/dL (0.6-1.0) 02/02/17 07:55 Estimated GFR > 60 02/02/17 07:55 Glucose 176 mg/dL (70-100) H 02/02/17 07:55 POC Glucose 133 mg/dL (70-100) H 02/02/17 11:14 Calcium 10.2 mg/dL (8.5-10.4) 02/02/17 07:55 Visualized and Interpreted EKG results: Yes EKG Interpretation: Positive for: other (Normal sinus mechanism) Assessment & Plan Assessment: 51-year-old female presenting with acute gastroenteritis Plan: 1. Gastroenteritis. Acute, new problem, further workup indicated. Most likely viral, will check PCR to rule out bacterial causes and hold on antidiarrheals until that time -patient has ongoing fluid losses will replace IV and continue high rate IV fluids -continue antiemetics -placed on bowel rest with clear liquids and advance this evening as tolerates 2. Diabetes mellitus. No evidence of DKA, hyperglycemia on presentation, pending patient is able to tolerate oral diet, will continue long-acting insulin and sliding scale 3. Chronic back pain. Patient is adamant that she does not want opiates, review of outside records including discharge summary by Dr. Kendrick on 11/20/2016, revealing most recent workup for back pain included an MRI demonstrating degenerative disc disease, tendinopathy, L2-L3 abnormality, patient placed on NSAIDs, gabapentin, Medrol Dosepak -if worsening, can recommend outpatient ALLEGRA 4. Hypertension. Chronic, holding antihypertensive given volume losses Diet. Clear liquids Prophylaxis. High risk patient, Lovenox 40 Code. Full Disposition. Anticipated discharge is 02/03, pending further workup and treatment of above I discussed the patient's presentation with Dr. Rodriguez in the emergency department, both agree the patient is appropriate for the [facility] at this time for aggressive hydration.
[2017-02-02] MEDS: INSULIN REGULAR HUMAN 100 UNIT/ML SC SCH ×3 (13:30→20:53)
[2017-02-02] MEDS: ONDANSETRON DISINTEGRATING 4 MG TAB PO PRN (14:19)
[2017-02-02] MEDS: LOPERAMIDE HCL 2 MG CAP PO PRN ×3 (18:01→20:54)
[2017-02-02] MEDS ORDERED: INSULIN GLARGINE 100 UNITS/ML SYRINGE SC SCH (21:00)
[2017-02-02] MEDS ORDERED: INSULIN GLARGINE HUM REC ANLOG 24 UNIT SQ SCH (21:00)
[2017-02-03] MEDS: NS 1,000 ML IV SCH ×2 (01:51→06:18)
[2017-02-03] MEDS: ONDANSETRON DISINTEGRATING 4 MG TAB PO PRN (02:25)
[2017-02-03 04:58] LABS: % IMMATURE GRANULYOCYTES 0.5 % (0.0-1.1); ABSOLUTE IMMATURE GRANULOCYTES 0.05 10^3/uL (0.00-0.10); ADD DIFF? NO; ADD MORPH? NO; ADD SCAN? NO; ATYPICAL LYMPHOCYTE FLAG 50 (0-99); FRAGMENT RBC FLAG 0 (0-99); HEMATOCRIT 39.4 % (38.0-47.0); HEMOGLOBIN 13.6 g/dL (12.6-16.3); LEFT SHIFT FLG 0 (0-99); LIPEMIA HEMOLYSIS FLAG 90 (0-99); MEAN CELL HEMOGLOBIN 31.8 pg (27.9-34.1); MEAN CELL HEMOGLOBIN CONCENTR. 34.5 g/dL (32.4-36.7); MEAN CELL VOLUME 92.1 fL (81.5-99.8); MEAN PLATELET VOLUME 9.4 fL (8.7-11.7); PLATELET CLUMPS FLAG 10 (0-99); PLATELET COUNT 283 10^3/uL (150-400); RED BLOOD CELL COUNT 4.28 10^6/uL (4.18-5.33); RED CELL DISTRIBUTION WIDTH 12.9 % (11.5-15.2)
[2017-02-03 05:21] LABS: ALANINE AMINOTRANSFERASE 23 IU/L (9-52); ALBUMIN 3.2 g/dL (3.5-5.0); ALKALINE PHOSPHATASE 56 IU/L (38-126); ANION GAP 8 mEq/L (8-16); ASPARTATE AMINOTRANSFERASE 17 IU/L (14-46); BILIRUBIN,TOTAL 0.7 mg/dL (0.1-1.4); CALCIUM 8.2 mg/dL (8.5-10.4); CARBON DIOXIDE 19 mEq/l (22-31); CHLORIDE 112 mEq/L (97-110); CREATININE 0.7 mg/dL (0.6-1.0); GLOMERULAR FILTRATION RATE > 60; GLUCOSE 110 mg/dL (70-100); POTASSIUM 3.8 mEq/L (3.5-5.2); SODIUM 139 mEq/L (134-144); TOTAL PROTEIN 6.1 g/dL (6.3-8.2)
[2017-02-03 06:22] VITALS: O2SAT 95
[2017-02-03 08:39] VITALS: BP 111/86; PULSE 72; RESP 20; TEMP 98.1
[2017-02-03] MEDS: INSULIN REGULAR HUMAN 100 UNIT/ML SC SCH (10:42)
--- NOTE | 2017-02-03 15:36 | GDS ---
[f rep st] DISCHARGE SUMMARY DISCHARGE DIAGNOSES: Include: 1. Acute suspected viral gastroenteritis. 2. Diabetes mellitus. 3. Chronic back pain. 4. Hypertension. HISTORY OF PRESENT ILLNESS: This is a 51-year-old female with a history of diabetes, who presents w ith several days of voluminous diarrhea described as nonbloody. For details of patient's initial pr esentation, please see the history and physical dated 02/02/2017. CONSULTATIVE SERVICES: None. PROCEDURES: None. HOSPITAL COURSE: By issue: 1. Acute presumed viral gastroenteritis: Patient did have stool studies sent, and PCR panel was ne gative for any bacterial or viral pathogens. Patient's diarrhea resolved with supportive care alone . Patient is tolerating a regular diet at the time of disposition and will follow in the outpatient setting with her primary care provider. 2. Diabetes mellitus: She will be continued on her home insulin therapy. 3. Hypertension: Patient remained normotensive on her home meds. No changes were made to her sera men. 4. Homelessness: A great period of time was spent on coordinating patient's safe disposition and a bility to obtain her diabetic supplies, medications, etc. In coordination with nursing and case man agement, patient feels safe to return to the streets living in her car until she is able to obtain h ousing. PENDING STUDIES: None. FOLLOWUP APPOINTMENTS: Include with her primary care provider next week for post disposition follow up, vital sign check, and labs. I spent greater than 30 minutes in the planning and coordination of this discharge. /[id number]
== END 2017-02-03 10:53 | disposition home or self-care (01) ==
LOC: F1N 10:11
PROVIDERS: ADMIT Family Medicine; ATTEND Family Medicine
DX: A08.39 Other viral enteritis (principal); E11.9 Type 2 diabetes mellitus without complications; G89.29 Other chronic pain; I10 Essential (primary) hypertension; Z59.0 Homelessness
CPT/HCPCS: 93005; 99285; G0378; J1815

== ENCOUNTER 2017-03-03 09:36 | Emergency (ER) | payer OTHER, MEDICAID ==
[2017-03-03] MEDS ORDERED: METOCLOPRAMIDE 10 MG/2 ML VIAL IVP ONE (09:45)
[2017-03-03] MEDS ORDERED: ONDANSETRON 4 MG/2 ML VIAL IVP ONE (09:45)
[2017-03-03] MEDS ORDERED: NS 1,000 ML IV ONE (09:45)
--- NOTE | 2017-03-03 09:52 | EDPHY ---
H & P HPI/ROS: CHIEF COMPLAINT: Abdominal pain, nausea, vomiting diarrhea HISTORY OF PRESENT ILLNESS: Patient woke this morning at 5:00 a.m. with sudden onset of diarrhea and vomiting. Several episodes since onset. Associated with severe epigastric and generalized abdominal pain and cramping. She is diaphoretic and lightheaded during the bowel movements in emesis. No bloody stools or emesis. No fever or chills. Some chest pain with the vomiting only. [facility]. No other food overnight. She is an insulin-dependent diabetic. EMS reports that time of arrival blood sugar was 128. They administered IV Zofran EN route in the her IV blew. She did not take her morning insulin. She was seen at time of arrival by EMS. No other associated complaints or modifying factors. PREVIOUS ABDOMINAL SURGERIES/DIAGNOSES: NPO: Last night REVIEW OF SYSTEMS: Ten systems reviewed and are negative unless otherwise noted in the HPI EXAMINATION: General Appearance: Alert, no distress Head: normocephalic, atraumatic Eyes: Pupils equal and round, no conjunctival pallor or injection ENT, Mouth: Mucous membranes moist. Uvula midline. No erythema or edema. Neck: Normal inspection, supple, non-tender. Trachea midline Respiratory: Lungs are clear to auscultation. No wheezing, rhonchi or crackles. Cardiovascular: Regular rate and rhythm. No murmur. Pulses intact distally. Gastrointestinal: obese Abdomen is soft and nontender. No tympany. No rigidity. No distention. Non-acute abdomen. Back: non-tender, no bony abnormalities Neurological: GCS 15. A&O, nonfocal Skin: Warm and dry, no rash Extremities: Nontender, no pedal edema Psychiatric: mildly anxious DIFFERENTIAL DIAGNOSES: Including but not limited to gastroenteritis, enteritis, gastritis, colitis, food-borne illness, dehydration, cholecystitis MDM: 9:45 a.m. Sudden onset of vomiting and diarrhea this morning. This is associated with epigastric abdominal pain as well as some chest pain with vomiting only. No chest pain at rest. No exertional chest pain. No bloody stools or emesis. No recent antibiotics. No history of C difficile colitis. She did [facility] a meal [facility] a [facility] last night. Patient appears somewhat anxious but is in no acute distress. 10:20 a.m. Laboratory studies thus far reveal leukocytosis. The remainder of the labs are pending. She did have a watery bowel movement, and this has been sent for GI pathogen panel. 11:15 a.m. Notified that the patient's GI pathogen panel reveals positive norovirus resolved. No other positive findings. 12:25 p.m. Notified by radiologist Dr. Holman. There are chronic changes as noted. He did note in disc bulge in lumbar region as dictated. There are no acute findings. Specifically no colitis or appendicitis. Laboratory studies do reveal leukocytosis and positive norovirus. Remainder of labs are within normal limits 12:40 p.m. I have re-evaluated the patient. She has not vomited since arrival. She did have 2 episodes of diarrhea while here. Her pain is improved. CT scan is not concerning for acute findings. She is tolerating intake by mouth here without vomiting. I do feel she is stable for discharge home with antiemetics and instructions to increase her fluid intake. She is comfortable with this plan. She is to return to the ER should she not be able to keep any liquids down for 12-24 hours, she developed a fever or worsening abdominal pain. She is comfortable this plan and discharged home stable condition. ED Precautions: Worsening pain. Fever. Bloody stools. Bloody emesis. Constipation or diarrhea. SUPERVISION: This patient was independently evaluated without direct examination by the attending physician. Case was discussed with attending physician. Case discussed with Dr. Rodriguez Source: Patient, EMS - Medical/Surgical History Hx Asthma: No Hx Chronic Respiratory Disease: No Hx Diabetes: Yes Hx Cardiac Disease: No Hx Renal Disease: No Hx Cirrhosis: No Hx Alcoholism: No Hx HIV/AIDS: No Hx Splenectomy or Spleen Trauma: No Other PMH: dm. hysterectomy. 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 HTN. staph inf in L leg, depression, anxiety - Social History Smoking Status: Never smoked Constitutional: Initial Vital Signs Temperature (C) 97.5 F 03/03/17 09:47 Heart Rate 73 03/03/17 09:47 Respiratory Rate 18 03/03/17 09:47 Blood Pressure 136/93 H 03/03/17 09:47 O2 Sat (%) 97 03/03/17 09:47 O2 Delivery Mode Room Air Allergies/Adverse Reactions: No Known Allergies Allergy (Verified 02/02/17 07:48) Home Medications: Medication Instructions Recorded Albuterol Sulfate [Proair Hfa] 1 - 2 puffs IH Q4 PRN 02/02/17 Insulin Aspart [Novolog Flexpen] 6 - 10 unit SQ TIDMEAL 02/02/17 Insulin Glargine,Hum.rec.anlog 24 unit SQ HS 02/02/17 [Lantus Solostar] Lisinopril [Zestril 20 mg (*)] 20 mg PO DAILY 02/02/17 Ondansetron Odt [Zofran Odt 4 mg 4 mg PO Q6 PRN #12 tab 03/03/17 (*)] Promethazine HCl [Phenergan 25mg 25 mg PO Q8 PRN #12 tab 03/03/17 (*)] Medical Decision Making - Diagnostics Imaging Results: Imaging Impressions Chest X-Ray 03/03/17 09:45 Impression: No active cardiac pulmonary disease seen. Abdomen CT 03/03/17 10:22 Impression: 1. No significant abnormality within the abdomen and pelvis. 2. No CT evidence of appendicitis, abscess or bowel obstruction. 3. Degenerative disk disease related to mild levoscoliosis. There is moderate left posterior lateral disk protrusion at L4-L5 with severe left sided neural foraminal stenosis and moderate facet hypertrophy. Findings discussed with Esequiel Huerta, PAC at 1220 hour, 03/03/2017. - Data Points Laboratory Results: Laboratory Results 03/03/17 09:55 03/03/17 09:55 03/03/17 03/03/17 03/03/17 10:10 09:55 09:55 WBC RBC Hgb Hct MCV MCH MCHC RDW Plt Count MPV Neut % (Auto) Lymph % (Auto) [place] % (Auto) Eos % (Auto) Baso % (Auto) Nucleat RBC Rel Count Absolute Neuts (auto) Absolute Lymphs (auto) Absolute Monos (auto) Absolute Eos (auto) Absolute Basos (auto) Absolute Nucleated RBC Immature Gran % Immature Gran # PT 13.1 SEC SEC (12.0-15.0) INR 1.00 (0.83-1.16) APTT 26.0 SEC SEC (23.0-38.0) Sodium 141 mEq/L mEq/L (134-144) Potassium 4.5 mEq/L mEq/L (3.5-5.2) Chloride 110 mEq/L mEq/L (97-110) Carbon Dioxide 20 mEq/l L mEq/l (22-31) Anion Gap 11 mEq/L mEq/L (8-16) BUN 22 mg/dL mg/dL (7-23) Creatinine 0.9 mg/dL mg/dL (0.6-1.0) Estimated GFR > 60 Glucose 143 mg/dL H mg/dL (70-100) Calcium 9.6 mg/dL mg/dL (8.5-10.4) Total Bilirubin 0.5 mg/dL mg/dL (0.1-1.4) Conjugated Bilirubin 0.4 mg/dL mg/dL (0.0-0.5) Unconjugated Bilirubin 0.1 mg/dL mg/dL (0.0-1.1) AST 24 IU/L IU/L (14-46) ALT 27 IU/L IU/L (9-52) Alkaline Phosphatase 69 IU/L IU/L (38-126) Troponin I < 0.012 ng/mL ng/mL (0-0.034) Total Protein 7.1 g/dL g/dL (6.3-8.2) Albumin 4.1 g/dL g/dL (3.5-5.0) Lipase 156.0 IU/L IU/L (23-300) Urine Color YELLOW Urine Appearance HAZY Urine pH 5.0 (5.0-7.5) Ur Specific [place] 1.026 (1.002-1.030) Urine Protein NEGATIVE (NEGATIVE) Urine Ketones NEGATIVE (NEGATIVE) Urine Blood NEGATIVE (NEGATIVE) Urine Nitrate NEGATIVE (NEGATIVE) Urine Bilirubin NEGATIVE (NEGATIVE) Urine Urobilinogen NEGATIVE EU EU (0.2-1.0) Ur Leukocyte Esterase NEGATIVE (NEGATIVE) Urine Glucose NEGATIVE (NEGATIVE) 03/03/17 09:55 WBC 17.94 10^3/uL H 10^3/uL (3.80-9.50) RBC 4.81 10^6/uL 10^6/uL (4.18-5.33) Hgb 15.2 g/dL g/dL (12.6-16.3) Hct 44.1 % % (38.0-47.0) MCV 91.7 fL fL (81.5-99.8) MCH 31.6 pg pg (27.9-34.1) MCHC 34.5 g/dL g/dL (32.4-36.7) RDW 12.5 % % (11.5-15.2) Plt Count 303 10^3/uL 10^3/uL (150-400) MPV 9.5 fL fL (8.7-11.7) Neut % (Auto) 81.4 % H % (39.3-74.2) Lymph % (Auto) 10.9 % L % (15.0-45.0) [place] % (Auto) 5.7 % % (4.5-13.0) Eos % (Auto) 1.2 % % (0.6-7.6) Baso % (Auto) 0.3 % % (0.3-1.7) Nucleat RBC Rel Count 0.0 % % (0.0-0.2) Absolute Neuts (auto) 14.60 10^3/uL H 10^3/uL (1.70-6.50) Absolute Lymphs (auto) 1.95 10^3/uL 10^3/uL (1.00-3.00) Absolute Monos (auto) 1.03 10^3/uL H 10^3/uL (0.30-0.80) Absolute Eos (auto) 0.22 10^3/uL 10^3/uL (0.03-0.40) Absolute Basos (auto) 0.05 10^3/uL 10^3/uL (0.02-0.10) Absolute Nucleated RBC 0.00 10^3/uL 10^3/uL (0-0.01) Immature Gran % 0.5 % % (0.0-1.1) Immature Gran # 0.09 10^3/uL 10^3/uL (0.00-0.10) PT INR APTT Sodium Potassium Chloride Carbon Dioxide Anion Gap BUN Creatinine Estimated GFR Glucose Calcium Total Bilirubin Conjugated Bilirubin Unconjugated Bilirubin AST ALT Alkaline Phosphatase Troponin I Total Protein Albumin Lipase Urine Color Urine Appearance Urine pH Ur Specific [place] Urine Protein Urine Ketones Urine Blood Urine Nitrate Urine Bilirubin Urine Urobilinogen Ur Leukocyte Esterase Urine Glucose Microbiology Results: MICROBIOLOGY 03/03/17 10:10 Stool Gastrointestinal Tract Panel (PCR) - Final Norovirus Gi/Gii Medications Given: Discontinued Medications Diphenhydramine HCl (Benadryl Injection) 25 mg IVP EDNOW ONE Stop: 03/03/17 09:47 Last Admin: 03/03/17 11:53 Dose: Not Given Sodium Chloride (Ns) 1,000 mls @ 0 mls/hr IV ONCE ONE PRN Reason: Wide Open Stop: 03/03/17 09:46 Last Admin: 03/03/17 10:25 Dose: 1,000 mls Metoclopramide HCl (Reglan Injection) 10 mg IVP EDNOW ONE Stop: 03/03/17 09:46 Last Admin: 03/03/17 11:52 Dose: Not Given Ondansetron HCl (Zofran) 4 mg IVP EDNOW ONE Stop: 03/03/17 09:46 Last Admin: 03/03/17 11:53 Dose: Not Given Departure - Departure Disposition: Home, Routine, Self-Care Clinical Impression: Nausea vomiting and diarrhea, Norovirus Abdominal pain Qualifiers: Abdominal location: epigastric Qualified Code(s): R10.13 - Epigastric pain Condition: Good Instructions: Acute Nausea and Vomiting (ED), Acute Diarrhea (ED), Acute Abdominal Pain (ED) Additional Instructions: 1. Increase fluid intake and advance diet as tolerated slowly 2. Zofran ODT p.r.n. as prescribed 3. Phenergan p.r.n. as prescribed 4. Return to ED if unable to tolerate intake by mouth for 12-24 hours Follow up with primary care physician [facility] on Sunday. Referrals: [facility] [Other] - As per Instructions Prescriptions: Ondansetron Odt [Zofran Odt 4 mg (*)] 4 mg PO Q6 PRN #12 tab PRN Reason: Nausea/Vomiting, Use 1st Promethazine HCl [Phenergan 25mg (*)] 25 mg PO Q8 PRN #12 tab PRN Reason: Nausea/Vomiting, Use 1st
[2017-03-03 10:01] LABS: % IMMATURE GRANULYOCYTES 0.5 % (0.0-1.1); ABSOLUTE IMMATURE GRANULOCYTES 0.09 10^3/uL (0.00-0.10); ADD DIFF? NO; ADD MORPH? NO; ADD SCAN? NO; ATYPICAL LYMPHOCYTE FLAG 10 (0-99); FRAGMENT RBC FLAG 0 (0-99); HEMATOCRIT 44.1 % (38.0-47.0); HEMOGLOBIN 15.2 g/dL (12.6-16.3); LEFT SHIFT FLG 10 (0-99); LIPEMIA HEMOLYSIS FLAG 90 (0-99); MEAN CELL HEMOGLOBIN 31.6 pg (27.9-34.1); MEAN CELL HEMOGLOBIN CONCENTR. 34.5 g/dL (32.4-36.7); MEAN CELL VOLUME 91.7 fL (81.5-99.8); MEAN PLATELET VOLUME 9.5 fL (8.7-11.7); PLATELET CLUMPS FLAG 0 (0-99); PLATELET COUNT 303 10^3/uL (150-400); RED BLOOD CELL COUNT 4.81 10^6/uL (4.18-5.33); RED CELL DISTRIBUTION WIDTH 12.5 % (11.5-15.2)
[2017-03-03 10:11] LABS: PROTIME(PATIENT) 13.1 SEC (12.0-15.0)
--- NOTE | 2017-03-03 10:23 | CPEKG ---
Heart Rate: 67 RR Interval: 896 P-R Interval: 176 QRSD Interval: 84 QT Interval: 404 QTC Interval: 427 P [place]: 18 QRS [place]: 19 T Wave [place]: 69 EKG Severity - BORDERLINE ECG - EKG Impression: SINUS RHYTHM Electronically Signed By: Gustavo Rodriguez 03-Mar-2017 11:01:31
[2017-03-03 10:34] LABS: ALANINE AMINOTRANSFERASE 27 IU/L (9-52); ALBUMIN 4.1 g/dL (3.5-5.0); ALKALINE PHOSPHATASE 69 IU/L (38-126); ANION GAP 11 mEq/L (8-16); ASPARTATE AMINOTRANSFERASE 24 IU/L (14-46); BILIRUBIN,TOTAL 0.5 mg/dL (0.1-1.4); BILIRUBIN-CONJUGATED 0.4 mg/dL (0.0-0.5); BILIRUBIN-UNCONJUGATED 0.1 mg/dL (0.0-1.1); CALCIUM 9.6 mg/dL (8.5-10.4); CARBON DIOXIDE 20 mEq/l (22-31); CHLORIDE 110 mEq/L (97-110); CREATININE 0.9 mg/dL (0.6-1.0); GLOMERULAR FILTRATION RATE > 60; GLUCOSE 143 mg/dL (70-100); POTASSIUM 4.5 mEq/L (3.5-5.2); SODIUM 141 mEq/L (134-144); TOTAL PROTEIN 7.1 g/dL (6.3-8.2)
[2017-03-03 10:45] LABS: TROPONIN I < 0.012 ng/mL (0-0.034)
[2017-03-03 10:45] LABS: COLOR YELLOW; LEUKOCYTE ESTERASE,URINE NEGATIVE (NEGATIVE); NITRITE,URINE NEGATIVE (NEGATIVE)
[2017-03-03 11:14] VITALS: RESP 16
[2017-03-03] MEDS ORDERED: IOPAMIDOL (ISOVUE-300) 100 ML BTL IV ONE (11:19)
[2017-03-03 13:35] VITALS: BP 138/75; PULSE 76; TEMP 97.5; O2SAT 96
== END 2017-03-03 13:35 | disposition home or self-care (01) ==
LOC: EDUNIT#
DX: A08.11 Acute gastroenteropathy due to Norwalk agent (principal); I10 Essential (primary) hypertension; E11.9 Type 2 diabetes mellitus without complications; Z79.4 Long term (current) use of insulin
CPT/HCPCS: 74177; 93005; 96360; 99285; Q9967

== ENCOUNTER 2017-10-27 15:21 | Inpatient (IN) | payer OTHER, MEDICAID ==
[2017-10-27] MEDS ORDERED: ONDANSETRON 4 MG/2 ML VIAL IVP ONE (15:40)
[2017-10-27] MEDS ORDERED: NS 1,000 ML IV ONE ×2 (15:40→16:28)
--- NOTE | 2017-10-27 15:43 | EDPHY ---
H & P Stated Complaint: pt diabetic/off meds/insulin over a month/n/v shaky Time Seen by Provider: 10/27/17 15:34 HPI/ROS: CHIEF COMPLAINT: Vomiting HISTORY OF PRESENT ILLNESS: The patient is a 52-year-old homeless female who is insulin diabetic who comes to the emergency department complaining of nausea and vomiting for the last 8 hr. She states that it has been about 4 months since she last used insulin. Her boyfriend states that she has been urinating a lot. She has not had a fever. She denies abdominal pain. She denies diarrhea. No blood in her vomit. She states she does not drink. She has never had pancreatitis. REVIEW OF SYSTEMS: Constitutional: denies: chills, fever, recent illness, recent injury EENTM: denies: blurred vision, double vision, nose congestion Respiratory: denies: cough, shortness of breath Cardiac: denies: chest pain, irregular heart rate, lightheadedness, palpitations Gastrointestinal/Abdominal: see HPI Genitourinary: denies: dysuria, frequency, hematuria, pain Musculoskeletal: denies: joint pain, muscle pain Skin: denies: lesions, rash, jaundice, bruising Neurological: denies: headache, numbness, paresthesia, tingling, dizziness, weakness Hematologic/Lymphatic: denies: blood clots, easy bleeding, easy bruising Immunologic/allergic: denies: HIV/AIDS, transplant EXAM: GENERAL: Well-appearing, well-nourished and in no acute distress. HEAD: Atraumatic, normocephalic. EYES: Pupils equal round and reactive to light, extraocular movements intact, sclera anicteric, conjunctiva are normal. ENT: TMs normal, nares patent, oropharynx clear without exudates. Moist mucous membranes. NECK: Normal range of motion, supple without lymphadenopathy or JVD. LUNGS: Breath sounds clear to auscultation bilaterally and equal. No wheezes rales or rhonchi. HEART: Regular rate and rhythm without murmurs, rubs or gallops. ABDOMEN: Soft, nontender, normoactive bowel sounds. No guarding, no rebound. No masses appreciated. BACK: No CVA tenderness, no spinal tenderness, step-offs or deformities EXTREMITIES: Normal range of motion, no pitting or edema. No clubbing or cyanosis. NEUROLOGICAL: Cranial nerves II through XII grossly intact. Normal speech, normal gait. 5/5 strength, normal movement in all extremities, normal sensation PSYCH: Normal mood, normal affect. SKIN: Warm, dry, normal turgor, no visible rashes or lesions. Source: Patient Exam Limitations: No limitations - Personal History LMP (Females 10-55): Hysterectomy Current Tetanus/Diphtheria Vaccine: Unsure - Medical/Surgical History Hx Asthma: No Hx Chronic Respiratory Disease: No Hx Diabetes: Yes Hx Cardiac Disease: No Hx Renal Disease: No Hx Cirrhosis: No Hx Alcoholism: No Hx HIV/AIDS: No Hx Splenectomy or Spleen Trauma: No Other PMH: dm. hysterectomy. 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 HTN. staph inf in L leg, depression, anxiety - Family History Significant Family History: No pertinent family hx - Social History Smoking Status: Never smoked Alcohol Use: None Constitutional: Initial Vital Signs Temperature (C) 36.6 C 10/27/17 15:30 Heart Rate 106 H 10/27/17 15:30 Respiratory Rate 24 H 10/27/17 15:30 Blood Pressure 171/112 H 10/27/17 15:30 O2 Sat (%) 96 10/27/17 15:30 O2 Delivery Mode Room Air Allergies/Adverse Reactions: No Known Allergies Allergy (Verified 10/27/17 15:29) Home Medications: Medication Instructions Recorded NK [No Known Home Meds] 10/27/17 Medical Decision Making ED Course/Re-evaluation: Patient's glucose is very high. She has a anion gap. I will start her on insulin and fluids and admit to the hospitalist service. 4:30 p.m. I discussed the case with Dr. Hood who agrees with the treatment thus far and will admit to the medical service to step-down. Differential Diagnosis: Partial list of the Differential diagnosis considered include but were not limited to; DKA, gastritis, food poisoning, dehydration and although unlikely based on the history and physical exam, I also considered obstruction, PE, appendicitis , urinary tract infection. Critical Care Time: Critical care time spent by me, Dr. Hollis exclusive with this patient was 45 minutes, exclusive of the PA time exclusive of procedures. The organ system that was at risk was cardiovascular and I gave IV fluids, medications, consultation and admission to prevent worsening of the patient's condition - Data Points Laboratory Results: Laboratory Results 10/27/17 15:42 10/27/17 15:42 10/27/17 10/27/17 10/27/17 15:42 15:42 15:42 WBC RBC Hgb Hct MCV MCH MCHC RDW Plt Count MPV Neut % (Auto) Lymph % (Auto) [place] % (Auto) Eos % (Auto) Baso % (Auto) Nucleat RBC Rel Count Absolute Neuts (auto) Absolute Lymphs (auto) Absolute Monos (auto) Absolute Eos (auto) Absolute Basos (auto) Absolute Nucleated RBC Immature Gran % Immature Gran # PT 13.8 SEC SEC (12.0-15.0) INR 1.04 (0.83-1.16) APTT 23.5 SEC SEC (23.0-38.0) Puncture Site Patient Temperature VBG pH VBG HCO3 VBG Total CO2 VBG O2 Saturation VBG Base Excess Mixed VBG pCO2 Mixed VBG pO2 Sodium 134 mEq/L mEq/L (134-144) Potassium 5.7 mEq/L H mEq/L (3.5-5.2) Chloride 99 mEq/L mEq/L (97-110) Carbon Dioxide 13 mEq/l L mEq/l (22-31) Anion Gap 22 mEq/L H mEq/L (8-16) BUN 21 mg/dL mg/dL (7-23) Creatinine 1.0 mg/dL mg/dL (0.6-1.0) Estimated GFR 58 Glucose 725 mg/dL H* mg/dL (70-100) Calcium 9.6 mg/dL mg/dL (8.5-10.4) Phosphorus 5.2 mg/dL H mg/dL (2.5-4.5) Magnesium 1.7 mg/dL mg/dL (1.6-2.3) Total Bilirubin 0.7 mg/dL mg/dL (0.1-1.4) Conjugated Bilirubin 0.4 mg/dL mg/dL (0.0-0.5) Unconjugated Bilirubin 0.3 mg/dL mg/dL (0.0-1.1) AST 16 IU/L IU/L (14-46) ALT 25 IU/L IU/L (9-52) Alkaline Phosphatase 95 IU/L IU/L (38-126) Total Protein 7.2 g/dL g/dL (6.3-8.2) Albumin 4.3 g/dL g/dL (3.5-5.0) Lipase 242 IU/L IU/L (23-300) Beta HCG, Qual NEGATIVE 10/27/17 10/27/17 15:42 15:41 WBC 13.26 10^3/uL H 10^3/uL (3.80-9.50) RBC 5.15 10^6/uL 10^6/uL (4.18-5.33) Hgb 16.9 g/dL H g/dL (12.6-16.3) Hct 46.5 % % (38.0-47.0) MCV 90.3 fL fL (81.5-99.8) MCH 32.8 pg pg (27.9-34.1) MCHC 36.3 g/dL g/dL (32.4-36.7) RDW 12.5 % % (11.5-15.2) Plt Count 280 10^3/uL 10^3/uL (150-400) MPV 10.1 fL fL (8.7-11.7) Neut % (Auto) 83.3 % H % (39.3-74.2) Lymph % (Auto) 11.5 % L % (15.0-45.0) [place] % (Auto) 3.9 % L % (4.5-13.0) Eos % (Auto) 0.2 % L % (0.6-7.6) Baso % (Auto) 0.4 % % (0.3-1.7) Nucleat RBC Rel Count 0.0 % % (0.0-0.2) Absolute Neuts (auto) 11.05 10^3/uL H 10^3/uL (1.70-6.50) Absolute Lymphs (auto) 1.53 10^3/uL 10^3/uL (1.00-3.00) Absolute Monos (auto) 0.52 10^3/uL 10^3/uL (0.30-0.80) Absolute Eos (auto) 0.02 10^3/uL L 10^3/uL (0.03-0.40) Absolute Basos (auto) 0.05 10^3/uL 10^3/uL (0.02-0.10) Absolute Nucleated RBC 0.00 10^3/uL 10^3/uL (0-0.01) Immature Gran % 0.7 % % (0.0-1.1) Immature Gran # 0.09 10^3/uL 10^3/uL (0.00-0.10) PT INR APTT Puncture Site NONE GIVEN Patient Temperature 37.0 DEGREES DEGREES VBG pH 7.35 (7.31-7.42) VBG HCO3 15 mEQ/L L mEQ/L (22-26) VBG Total CO2 16 mEq/L L mEq/L (23-27) VBG O2 Saturation 89 % H % (65-75) VBG Base Excess -8.9 mEq/L L mEq/L (-2.5-2.5) Mixed VBG pCO2 28 mmHg L mmHg (40-44) Mixed VBG pO2 57 mmHg H mmHg (35-40) Sodium Potassium Chloride Carbon Dioxide Anion Gap BUN Creatinine Estimated GFR Glucose Calcium Phosphorus Magnesium Total Bilirubin Conjugated Bilirubin Unconjugated Bilirubin AST ALT Alkaline Phosphatase Total Protein Albumin Lipase Beta HCG, Qual Medications Given: Sodium Chloride (Ns) 1,000 mls @ 150 mls/hr IV CONT JABARI Stop: 04/25/18 16:44 Last Admin: 10/27/17 18:13 Dose: 1,000 mls Magnesium Sulfate/Dextrose (Magnesium Sulf 1 Gm (Premix)) 100 mls @ 100 mls/hr IV ONCE ONE Stop: 10/27/17 19:13 Last Admin: 10/27/17 18:21 Dose: 100 mls Discontinued Medications Sodium Chloride (Ns) 1,000 mls @ 0 mls/hr IV EDNOW ONE; Wide Open PRN Reason: Protocol Stop: 10/27/17 15:41 Last Admin: 10/27/17 15:52 Dose: 1,000 mls Insulin Human Regular 100 unit / Miscellaneous Medication 1 ea/ Sodium Chloride 101 mls @ 6 mls/hr IV EDNOW ONE PRN Reason: Protocol Stop: 10/28/17 09:12 Last Admin: 10/27/17 16:56 Dose: 101 mls Sodium Chloride (Ns) 1,000 mls @ 0 mls/hr IV ONCE ONE; Wide Open PRN Reason: Protocol Stop: 10/27/17 16:29 Last Admin: 10/27/17 16:28 Dose: 1,000 mls Insulin Human Regular (Humulin R) 10 unit IVP EDNOW ONE Stop: 10/27/17 16:24 Last Admin: 10/27/17 16:34 Dose: 10 unit Ondansetron HCl (Zofran) 4 mg IVP EDNOW ONE Stop: 10/27/17 15:41 Last Admin: 10/27/17 15:52 Dose: 4 mg Departure - Departure Disposition: [facility] Acute Clinical Impression: DKA (diabetic ketoacidoses) Qualifiers: Diabetes mellitus type: type 1 Diabetes mellitus complication detail: without coma Qualified Code(s): E10.10 - Type 1 diabetes mellitus with ketoacidosis without coma Condition: Critical
[2017-10-27 15:49] LABS: PLATELET COUNT 280 10^3/uL (150-400)
[2017-10-27 15:59] LABS: INR 1.04 (0.83-1.16); PROTIME(PATIENT) 13.8 SEC (12.0-15.0)
[2017-10-27] MEDS ORDERED: INSULIN REGULAR HUMAN 100 UNIT/ML IVP ONE (16:23)
[2017-10-27] MEDS ORDERED: INSULIN REGULAR HUMAN 100 UNIT, COSIGN. REQUIRED 1 EA in NS 100 ML IV ONE (16:23)
[2017-10-27] MEDS ORDERED: PROMETHAZINE HCL 25 MG/ML INJ IVP PRN (16:36)
[2017-10-27] MEDS ORDERED: ONDANSETRON DISINTEGRATING 4 MG TAB PO PRN (16:36)
[2017-10-27] MEDS ORDERED: ACETAMINOPHEN 325 MG TAB PO PRN (16:36)
[2017-10-27] MEDS ORDERED: PROMETHAZINE HCL 25 MG TAB PO PRN (16:36)
[2017-10-27] MEDS ORDERED: ONDANSETRON 4 MG/2 ML VIAL IVP PRN (16:36)
[2017-10-27] MEDS ORDERED: NS 1,000 ML IV SCH (16:45)
--- NOTE | 2017-10-27 17:03 | PDGENHP ---
History and Physical - Chief Complaint Acute vomiting - History of Present Illness Primary care provider: [facility] HPI: 52-year-old female presents with acute vomiting characterized as nonbloody emesis with associated nausea, polyuria, general malaise with onset of symptoms 1 month prior, acute worsening over the past 8 hr, leading the patient to seek medical attention. She attempted to see her primary care provider over the past month but has been unable to do so. She reports that she has had no associated sore throat, dysuria, diarrhea, but her vomiting is exacerbated by oral intake and she feels dehydrated. She has been off of her insulin for the past 4-5 months and has been and unable to get a refill. Over that. She has had calf cramps and has not taken any [id number] medications. She has also run out of her antihypertensive. History Information - Allergies/Home Medication List Allergies/Adverse Reactions: No Known Allergies Allergy (Verified 10/27/17 15:29) Home Medications: NK [No Known Home Meds] 10/27/17 [Last Taken Unknown] I have personally reviewed and updated: family history, medical history, social history, surgical history - Past Medical History diabetes type 2 (Mealtime bolus insulin, at bedtime Lantus), hypertension - Surgical History Reports: cholecystectomy Additional surgical history: Left neck tumor removed - Family History Additional family history: Mother with pancreatic cancer - Social History Smoking Status: Never smoked Alcohol Use: None Drug Use: Marijuana Additional social history: 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12, none currently Review of Systems Review of Systems: ROS: 10pt was reviewed & negative except for what was stated in HPI & below Constitutional: Reports: malaise Gastrointestinal: Reports: vomitting, nausea Genitourinary: Reports: frequency Physical Exam Physical Exam: Temp Pulse Resp BP Pulse Ox 36.6 C 95 16 156/103 H 98 10/27/17 15:30 10/27/17 16:15 10/27/17 16:15 10/27/17 16:15 10/27/17 16:15 Constitutional: not in pain, chronically ill appearing, obese, uncomfortable Eyes: PERRL, anicteric sclera, EOMI Ears, Nose, Mouth, Throat: hearing normal, dry mucous membranes Cardiovascular: no murmur, rub, or gallop, tachycardia, No systolic murmur, No irregularly irregular, No edema Respiratory: no respiratory distress, no rales or rhonchi, clear to auscultation Gastrointestinal: normoactive bowel sounds, soft, non-tender abdomen, no palpable masses Genitourinary: no bladder fullness, no bladder tenderness Skin: other (Less than 1 cm papule posterior neck with mild surrounding erythema ), No rash Neurologic: AAOx3, sensation intact bilaterally, No weakness Psychiatric: interacting appropriately, not encephalopathic, anxious, No agitated Lab Data & Imaging Review 10/27/17 15:42 10/27/17 15:42 WBC 13.26 10^3/uL (3.80-9.50) H 10/27/17 15:42 RBC 5.15 10^6/uL (4.18-5.33) 10/27/17 15:42 Hgb 16.9 g/dL (12.6-16.3) H 10/27/17 15:42 Hct 46.5 % (38.0-47.0) 10/27/17 15:42 MCV 90.3 fL (81.5-99.8) 10/27/17 15:42 MCH 32.8 pg (27.9-34.1) 10/27/17 15:42 MCHC 36.3 g/dL (32.4-36.7) 10/27/17 15:42 RDW 12.5 % (11.5-15.2) 10/27/17 15:42 Plt Count 280 10^3/uL (150-400) 10/27/17 15:42 MPV 10.1 fL (8.7-11.7) 10/27/17 15:42 Neut % (Auto) 83.3 % (39.3-74.2) H 10/27/17 15:42 Lymph % (Auto) 11.5 % (15.0-45.0) L 10/27/17 15:42 [place] % (Auto) 3.9 % (4.5-13.0) L 10/27/17 15:42 Eos % (Auto) 0.2 % (0.6-7.6) L 10/27/17 15:42 Baso % (Auto) 0.4 % (0.3-1.7) 10/27/17 15:42 Nucleat RBC Rel Count 0.0 % (0.0-0.2) 10/27/17 15:42 Absolute Neuts (auto) 11.05 10^3/uL (1.70-6.50) H 10/27/17 15:42 Absolute Lymphs (auto) 1.53 10^3/uL (1.00-3.00) 10/27/17 15:42 Absolute Monos (auto) 0.52 10^3/uL (0.30-0.80) 10/27/17 15:42 Absolute Eos (auto) 0.02 10^3/uL (0.03-0.40) L 10/27/17 15:42 Absolute Basos (auto) 0.05 10^3/uL (0.02-0.10) 10/27/17 15:42 Absolute Nucleated RBC 0.00 10^3/uL (0-0.01) 10/27/17 15:42 Immature Gran % 0.7 % (0.0-1.1) 10/27/17 15:42 Immature Gran # 0.09 10^3/uL (0.00-0.10) 10/27/17 15:42 PT 13.8 SEC (12.0-15.0) 10/27/17 15:42 INR 1.04 (0.83-1.16) 10/27/17 15:42 APTT 23.5 SEC (23.0-38.0) 10/27/17 15:42 Sodium 134 mEq/L (134-144) 10/27/17 15:42 Potassium 5.7 mEq/L (3.5-5.2) H 10/27/17 15:42 Chloride 99 mEq/L (97-110) 10/27/17 15:42 Carbon Dioxide 13 mEq/l (22-31) L 10/27/17 15:42 Anion Gap 22 mEq/L (8-16) H 10/27/17 15:42 BUN 21 mg/dL (7-23) 10/27/17 15:42 Creatinine 1.0 mg/dL (0.6-1.0) 10/27/17 15:42 Estimated GFR 58 10/27/17 15:42 Glucose 725 mg/dL (70-100) H* 10/27/17 15:42 Calcium 9.6 mg/dL (8.5-10.4) 10/27/17 15:42 Phosphorus 5.2 mg/dL (2.5-4.5) H 10/27/17 15:42 Magnesium 1.7 mg/dL (1.6-2.3) 10/27/17 15:42 Total Bilirubin 0.7 mg/dL (0.1-1.4) 10/27/17 15:42 Conjugated Bilirubin 0.4 mg/dL (0.0-0.5) 10/27/17 15:42 Unconjugated Bilirubin 0.3 mg/dL (0.0-1.1) 10/27/17 15:42 AST 16 IU/L (14-46) 10/27/17 15:42 ALT 25 IU/L (9-52) 10/27/17 15:42 Alkaline Phosphatase 95 IU/L (38-126) 10/27/17 15:42 Total Protein 7.2 g/dL (6.3-8.2) 10/27/17 15:42 Albumin 4.3 g/dL (3.5-5.0) 10/27/17 15:42 Lipase 242 IU/L (23-300) 10/27/17 15:42 Beta HCG, Qual NEGATIVE 10/27/17 15:42 Visualized and Interpreted imaging results: Yes Interpretation: Telemetry demonstrating normal sinus mechanism Assessment & Plan Assessment: 52-year-old female presenting with acute diabetic ketoacidosis Plan: 1. Diabetic ketoacidosis. Acute, new problem this provider, further workup indicated. Most likely precipitated by medication non adherence, as the patient has not utilized insulin for the past 4-5 months and her onset of symptoms was approximately 1 month ago. That being said, her recent worsening and resultant glucose of 700, anion gap of 22, serum bicarbonate level of 13, may be secondary to an acute infectious precipitant and we should rule out viral cause with respiratory viral panel -discussed with Dr. Chas Hollis in the ED, he has reported to me the patient has received 2 L of fluid, 10 U of insulin, and we have agreed the patient requires insulin drip moving 4 -placed on DKA protocol, get regular labs, admit to ICU -make NPO with ice chips and water, advance diet to diabetic diet when tolerates -supportive care with antiemetics 2. Hypertension. Chronic, continue monitor, reinitiate home antihypertensive prior to discharge as the patient has had no access to recent prescription medications 3. Chronic anxiety. Uses marijuana to Medicaid, has a therapy dog, patient will request whether she is able to keep her therapy dog with her bedside Diet. Water and ice chips, advance when hungry Prophylaxis. Low risk patient, SCDs Code. Full Disposition. Anticipated discharge uncertain this time, patient is critically ill with diabetic ketoacidosis requiring ICU level care and anticipated length stay greater than 48 hr. 35 min critical care time spent with the patient, at bedside, addressing the issues as outlined above.
--- NOTE | 2017-10-27 17:25 | PDMN ---
Medical Necessity Medical necessity: C/M review: est. > 2 MN LOS for eval and TX of acute diabetic ketoacidosis requiring ongoing IV human Regular Insulin infusion, IV fluids, NPO with water and ice chips, DKA protocol, acute inpt PT/OT, cardiac monitoring, in ICU comorbid likely precipitated by medication nonadherence, chronic hypertension, chronic anxiety per H/P.
[2017-10-27] MEDS ORDERED: INSULIN REGULAR HUMAN 100 UNIT in NS 100 ML IV SCH (17:38)
[2017-10-27] MEDS ORDERED: D5W 1,000 ML IV SCH (17:38)
[2017-10-27] MEDS ORDERED: INSULIN REGULAR HUMAN 100 UNIT/ML IVP PRN (17:38)
[2017-10-27] MEDS ORDERED: D50W 25 GM/50 ML SYR IVP PRN (17:38)
[2017-10-27] MEDS ORDERED: PROTOCOL MAGNESIUM 1 DOSE IV PRN (17:42)
[2017-10-27] MEDS ORDERED: PROTOCOL POTASSIUM 1 DOSE MISC PRN ×2 (17:42→20:07)
[2017-10-27] MEDS ORDERED: MAGNESIUM SULF 1 GM/DEXTROSE 100 ML IV ONE (18:14)
[2017-10-27] MEDS ORDERED: MAGNESIUM SULF 1 GM/DEXTROSE 100 ML BAG IV ONE (18:20)
[2017-10-27] MEDS ORDERED: POTASSIUM CL 10 MEQ TAB PO ONE (20:08)
[2017-10-28 00:11] VITALS: TEMP 97.2
[2017-10-28] MEDS ORDERED: POTASSIUM CL 10 MEQ TAB PO ONE (00:12)
[2017-10-28 06:05] LABS: PLATELET COUNT 189 10^3/uL (150-400)
[2017-10-28] MEDS ORDERED: MAGNESIUM SULF 1 GM/DEXTROSE 100 ML IV ONE (06:40)
[2017-10-28 08:39] VITALS: BP 132/92; PULSE 73; RESP 21; O2SAT 97
[2017-10-28] MEDS ORDERED: INSULIN GLARGINE 100 UNITS/ML SYRINGE SC SCH (09:00)
--- NOTE | 2017-10-28 14:43 | ASDISCHSUM ---
Discharge Information Plan Status:Home with No Needs Medically Cleared to Leave:10/27/2017 Discharge Date:10/28/2017 10:35 AM CM D/C Disposition:Home, Routine, Self-Care ADT D/C Disposition:Home, Routine, Self-Care Projected Discharge Date:10/28/2017 12:00 AM Transportation at D/C:Friend Discharge Delay Reason: Follow-Up Date:10/28/2017 12:00 AM Discharge Slot: Final Diagnosis:DKA, N/V Placement Information Patient Contact Information Contact Name:MULUGETA Relationship:Other Address:[address] Work Phone: City:[place] Phone: [facility]/Zip Code:[place] [address] Email: Financial Information Financial Class: Primary Plan Desc:MEDICARE OUTPATIENT Primary Plan Number:[id number] Secondary Plan Desc:MED[place] Secondary Plan Number:[id number] Assessment Information Case Management Discharge Plan Note Case Management Discharge Discharge Order Complete? Answers: Yes Followup Appointment 10/28/2017 12:00 AM Patient to Obtain Answers: via MAP Medications Transportation Arranged Answers: Family/Friends Transport will Pick (Date 10/28/2017 12:00 AM & Time) Discharge Comments Notes: 52 year old female admitted for N/V, DKA. She has a hx of DM-2 , HTN, anxietyand homelessness. She reports that she has run out of insulin and HTN medications. Patient does have an appt at [facility] on Oct 30, 2017. Patient given a glucometer and vile of insulin and shown by RN how to administer. She will go to her [facility] appt. She lives in a van w/boyfriend and their dog and did not need retirement bed or transportation. Date Signed: 10/28/2017 02:42 PM Electronically Signed By:Shyanne Rojas LCSW Intervention Information
--- NOTE | 2017-10-28 21:07 | GDS ---
[f rep st] DISCHARGE SUMMARY DISCHARGE DIAGNOSIS: Diabetic ketoacidosis. HISTORY: The patient is a 52-year-old female, who ran out of her diabetes medications for a couple o f months and developed polyuria and polydipsia. Eventually presented to the emergency room being jeannine gnosed with DKA. She was admitted to the hospital to ICU on an insulin drip and DKA protocol with cl osure of her anion gap and resolution of DKA. She was prescribed Lantus insulin, as well as a home g lucose meter, and she already has close outpatient followup scheduled the [facility] to reinstit qawalangin medications. DISCHARGE MEDICATIONS: Please see computerized record for full detailed list. New medications: 1. Lantus insulin 10 units subcu daily. 2. Regular insulin via sliding scale. Patient was seen and examined by me on the day of discharge. /[id number]/MODL
== END 2017-10-28 10:35 | disposition home or self-care (01) | DRG 639 ==
LOC: OBSVTOIN 16:36 → F2N 17:11
PROVIDERS: ADMIT Internal Medicine; ATTEND Internal Medicine
DX: E10.10 Type 1 diabetes mellitus with ketoacidosis without coma (principal); T38.3X6A Underdosing of insulin and oral hypoglycemic [antidiabetic] drugs, initial encounter; I10 Essential (primary) hypertension; F41.8 Other specified anxiety disorders; Z59.0 Homelessness
CPT/HCPCS: 82947-QW; 96374; J1815; J2405; J3475

== ENCOUNTER 2017-12-02 13:34 | Emergency (ER) | payer OTHER, MEDICAID ==
[2017-12-02] MEDS ORDERED: IBUPROFEN 600 MG TAB PO ONE (14:40)
--- NOTE | 2017-12-02 15:00 | EDPHY ---
HPI/HX/ROS/PE/MDM Narrative: CHIEF COMPLAINT: Left-sided shoulder and back pain secondary to fall HISTORY OF PRESENT ILLNESS: The patient is a 52 y/o female with a history of diabetes and hypertension arriving in a c-collar complaining of left neck, shoulder, back, and hip pain secondary to slipping on ice this morning. Upon impact she fell on her left side and hit her head. Denies loss of consciousness after the fall. Currently, she has mild pain while breathing. She does have a history of an old back injury including a ruptured L4-5. Due to the prior injury, she has a tingling sensation in her legs, but this has not exacerbated since the fall. Denies taking anticoagulants or Aspirin. No fever, chills, shortness of breath, palpitations, vomiting, diarrhea, urinary complaints, headache, lightheadedness. REVIEW OF SYSTEMS: Aside from elements discussed in the HPI, a comprehensive 10-point review of systems was reviewed and is negative. PAST MEDICAL HISTORY: Diabetes mellitus, hypertension, left leg staph infection , depression, anxiety, hysterectomy SOCIAL HISTORY: Lives in [facility] VITAL SIGNS: BP: 150/99 others reviewed by me GENERAL: Somewhat obese, resting comfortably in no respiratory distress. HEENT: Atraumatic. Eyes: No icterus, no injection. Mouth: moist mucous membranes. No erythema or lesions. Neck: no midline or paraspinous tenderness, supple with no adenopathy. Full ROM of neck. Tenderness in lateral trapezius muscles but no neck pain. LUNGS: Clear to auscultation bilaterally, no wheezes, rhonchi or rales. CARDIAC: Regular rate and rhythm, no rubs, murmurs or gallops. ABDOMEN: Soft, nontender, nondistended, bowel sounds normal. BACK: Lateral left low back tenderness, near L4-L5 area, L4-5 spinal tenderness. No CVA tenderness. EXTREMITIES: Left Arm: upper humerus tenderness, no ecchymosis or bruising, no AC tenderness, good ROM at elbow but it does cause pain of the left shoulder. Otherwise range of motion is normal throughout. NEURO: Motor strength 5 over 5 in all major muscle groups. Sensation intact to light touch. SKIN: Warm and dry, no rash. PSYCHIATRIC: Normal mentation, no agitation. Portions of this note were transcribed by a behavioral medical director. I personally performed a history, physical exam, medical decision making, and confirmed accuracy of information the transcribed note. ED Course: The patient is a 52 y/o female with a history of diabetes and hypertension arriving in a c-collar presenting with left shoulder and low back tenderness secondary to slipping on ice this morning. On exam she has left upper humerus tenderness, trapezius tenderness, and L4-5 spinal tenderness radiating to her lateral left low back. Lumbar and left humerus x-ray ordered. 1gm PO Tylenol, 600mg PO Motrin, 10mg PO Flexeril, and lidocaine patch administered. 1507: I clinically cleared her c-spine and removed her cervical collar. 1514: Patient's x-ray's are negative for acute injury. There is degenerative disk disease of her L2-3, but this is unchanged from prior x-rays. Reassessed patient and discussed imaging findings. I have prescribed her Gabapentin, Flexeril, and lidocaine patches. I have also referred her to follow up with her neurosurgeon. Return precautions provided; patient is comfortable with this plan. MDM: Differential diagnosis for the patient's injury was considered including but not limited to contusion, abrasion, laceration, fracture, open fracture, or dislocation. - Data Points Imaging Results: Lumbar spine series: Impression: 1. No acute fracture. 2. Severe degenerative disk disease and grade 1 spondylolisthesis at L2-L3 are unchanged. Dictated By: Bhupinder Johnson MD Impression: Negative. No acute fracture. Dictated By: Bhupinder Johnson MD Imaging: I viewed and interpreted images myself Medications Given: Discontinued Medications Acetaminophen (Tylenol) 1,000 mg PO EDNOW ONE Stop: 12/02/17 15:14 Last Admin: 12/02/17 15:50 Dose: 1,000 mg Cyclobenzaprine HCl (Flexeril) 10 mg PO EDNOW ONE Stop: 12/02/17 15:14 Last Admin: 12/02/17 15:51 Dose: 10 mg Ibuprofen (Motrin) 600 mg PO EDNOW ONE Stop: 12/02/17 14:41 Last Admin: 12/02/17 14:45 Dose: 600 mg Lidocaine (Lidoderm 5%) 1 ea TD EDNOW ONE Stop: 12/02/17 15:14 Last Admin: 12/02/17 15:51 Dose: 1 ea General Time Seen by Provider: 12/02/17 15:00 Initial Vital Signs: Initial Vital Signs Temperature (C) 36.4 C 12/02/17 13:39 Heart Rate 77 12/02/17 13:39 Respiratory Rate 17 12/02/17 13:39 Blood Pressure 150/99 H 12/02/17 13:39 O2 Sat (%) 96 12/02/17 13:39 O2 Delivery Mode Room Air Allergies/Adverse Reactions: No Known Allergies Allergy (Verified 12/02/17 13:36) Home Medications: Medication Instructions Recorded Blood Sugar Diagnostic [Glucose 1 each QID #120 strip 10/28/17 Test Strip] Insulin Glargine [Lantus 100 10 units SC DAILY 30 Days #1 vial 10/28/17 UNITS/ML (*)] Insulin Regular Human [novoLIN R] 2 - 6 unit SQ TID PRN 30 Days #1 10/28/17 vial Syrge-Ndl,Ins 0.3 ml Half Keegan 1 each QID #120 disp.syrin 10/28/17 [Insulin Syringe] Cyclobenzaprine [Flexeril 10 MG 10 mg PO TID PRN #15 tab 12/02/17 (*)] Gabapentin [Neurontin 300 MG (*)] 300 mg PO HS #10 cap 12/02/17 Lidocaine 5% [Lidoderm 5% Patch 1 ea TD DAILY PRN #10 patch 12/02/17 (*)] Departure - Departure Disposition: Home, Routine, Self-Care Clinical Impression: Low back pain Qualifiers: Chronicity: acute Back pain laterality: left Sciatica presence: without sciatica Qualified Code(s): M54.5 - Low back pain Fall Qualifiers: Encounter type: initial encounter Qualified Code(s): W19.XXXA - Unspecified fall, initial encounter Contusion Qualifiers: Encounter type: initial encounter Contusion area: upper arm Laterality: left Qualified Code(s): S40.022A - Contusion of left upper arm, initial encounter Condition: Good Instructions: Gabapentin (By mouth), Acute Low Back Pain (ED), Chronic Back Pain (ED), Lower Back Exercises (ED) Additional Instructions: Mainstay of therapy is rest, ice, anti-inflammatories, pain medications, and muscle relaxants as much as possible. Apply ice for 20-30 minutes every 2-3 hours for the next 48 hours. After 48 hours, a heating pad or hot tub may feel better. Use ibuprofen 600 mg every 6-8 hours on a regular basis to provide pain relief and anti-inflammatory effects. Take Gabapentin as prescribed. Use Lidocaine patches as instructed. Use Flexeril 10 mg up to 3 times a day for muscle spasm. Followup with the physician as directed. Consider physical therapy or chiropractic followup. Return to the emergency department or seek care urgently if you have worsening pain, pain radiating into the legs, weakness, numbness or tingling, difficulties with bowel or bladder, or other concerns Referrals: Jaycee Blanco MD [Primary Care Provider] - As per Instructions Rashard William MD [Medical Doctor] - As per Instructions Prescriptions: Cyclobenzaprine [Flexeril 10 MG (*)] 10 mg PO TID PRN #15 tab PRN Reason: Spasms Gabapentin [Neurontin 300 MG (*)] 300 mg PO HS #10 cap Lidocaine 5% [Lidoderm 5% Patch (*)] 1 ea TD DAILY PRN #10 patch PRN Reason: Pain Report Scribed for: Kelly Mejia Report Scribed by: Helene Milligan Date of Report: 12/02/17 Time of Report: 15:00
[2017-12-02] MEDS ORDERED: ACETAMINOPHEN 500 MG TAB PO ONE (15:13)
[2017-12-02] MEDS ORDERED: CYCLOBENZAPRINE 10 MG TAB PO ONE (15:13)
[2017-12-02] MEDS ORDERED: LIDOCAINE 5% 1 EA PATCH TD ONE (15:13)
[2017-12-02 17:07] VITALS: BP 153/105; PULSE 78; RESP 18; TEMP 98.4; O2SAT 94
[2017-12-02] MEDS ORDERED: PATCH REMOVAL 1 EA PATCH TD SCH (21:00)
== END 2017-12-02 16:55 | disposition home or self-care (01) ==
DX: S40.022A Contusion of left upper arm, initial encounter (principal); S39.92XA Unspecified injury of lower back, initial encounter; E11.9 Type 2 diabetes mellitus without complications; I10 Essential (primary) hypertension; Z79.4 Long term (current) use of insulin; W00.0XXA Fall on same level due to ice and snow, initial encounter

== ENCOUNTER 2018-02-25 18:05 | Emergency (ER) | payer MEDICAID, OTHER ==
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
[2018-02-25 18:16] VITALS: BP 180/140
== END 2018-02-25 18:54 | disposition home or self-care (01) ==
LOC: EDUNIT#
DX: S00.12XA Contusion of left eyelid and periocular area, initial encounter (principal); I10 Essential (primary) hypertension; E11.9 Type 2 diabetes mellitus without complications; Z79.4 Long term (current) use of insulin; Y00.XXXA Assault by blunt object, initial encounter

== ENCOUNTER 2018-06-25 19:40 | Emergency (ER) | payer OTHER, MEDICAID ==
--- NOTE | 2018-06-25 19:51 | EDPHY ---
HPI/HX/ROS/PE/MDM Narrative: CHIEF COMPLAINT: Nausea, vomiting, diarrhea. HISTORY OF PRESENT ILLNESS: This patient is a 52 y/o female with history of type 1 diabetes mellitus and hypertension arriving via EMS. She complains of nausea, vomiting, and diarrhea. The patient has had diarrhea ongoing for one week. She endorses 2-3 episodes of "jelly-like" diarrhea per day. This morning, she began vomiting. She has epigastric pain associated with the vomiting. She denies hematemesis or hematochezia. She feels generally weak today. EMS administered 4mg Zofran en route for nausea. The patient's BGL was noted to be elevated at 402. The patient states she generally takes 10 units of long-acting insulin daily, and takes short-acting insulin on a sliding scale. She has history of DKA in the past, around 2004. No fever, chills, chest pain, shortness of breath, palpitations, urinary complaints, headache, lightheadedness. REVIEW OF SYSTEMS: Aside from elements discussed in the HPI, a comprehensive 10-point review of systems was reviewed and is negative. PAST MEDICAL HISTORY: Diabetes mellitus type 1. Hypertension. SOCIAL HISTORY: Currently living in her vehicle. Endorses marijuana use. No tobacco use. Does not abuse alcohol or illicit drugs. VITAL SIGNS: Reviewed by me GENERAL: Anxious appearing. Well-developed, well-nourished, resting comfortably in no respiratory distress. HEENT: Atraumatic. Eyes: No icterus, no injection. Mouth: moist mucous membranes. No erythema or lesions. Neck: supple with no adenopathy. LUNGS: Clear to auscultation bilaterally, no wheezes, rhonchi or rales. CARDIAC: Regular rate and rhythm, no rubs, murmurs or gallops. ABDOMEN: Epigastric tenderness. Soft, nondistended, bowel sounds normal. BACK: No CVA tenderness. EXTREMITIES: No trauma. No edema. Range of motion is normal throughout. NEURO: Alert and oriented, grossly nonfocal. SKIN: Warm and dry, no rash. PSYCHIATRIC: Normal mentation, no agitation. Portions of this note were transcribed by a clinical medical assistant. I personally performed a history, physical exam, medical decision making, and confirmed accuracy of information the transcribed note. (Kelly Mejia) ED Course: 52 y/o female with history of type 1 DM presents with nausea, vomiting, and diarrhea. Plan for labs including CBC, chemistries, UA, lipase. Plan for GI pathogen analysis if the patient can provide a stool sample. The patient continues to feel nauseous. Plan to administer 4mg IV Zofran, 1L IV NS for symptom relief. Patient's labs demonstrate a glucose of 420, bicarb of 18, positive ketones in the urine. This is consistent with mild DKA. Patient had 10 unit the regular insulin ordered. On re-examination the patient reports that she feels well, nausea has resolved, she has not had further diarrhea in the emergency department. She believe she can tolerate p.o. Fluids. A repeat Chem 7 was ordered. Patient will be discharged with Zofran for ongoing nausea. She does have insulin available to her at home. (Kelly Mejia) 11:45 p.m.- Repeat Chem 7 has markedly improved with glucose of 170s and bicarbonate of 21. She is feeling well and will be discharged from the emergency department. Currently there is no suspicion for DKA. (April Meza) MDM: Differential diagnoses for the patient's symptom complex was considered including but not limited to gastroenteritis, DKA, hyperglycemia, pancreatitis, dehydration. (Kelyl Mejia) - Data Points Laboratory Results: Laboratory Results 06/25/18 19:49 06/25/18 23:08 06/25/18 06/25/18 06/25/18 23:08 20:45 19:49 WBC RBC Hgb Hct MCV MCH MCHC RDW Plt Count MPV Neut % (Auto) Lymph % (Auto) [place] % (Auto) Eos % (Auto) Baso % (Auto) Nucleat RBC Rel Count Absolute Neuts (auto) Absolute Lymphs (auto) Absolute Monos (auto) Absolute Eos (auto) Absolute Basos (auto) Absolute Nucleated RBC Immature Gran % Immature Gran # Sodium 138 mEq/L mEq/L 135 mEq/L mEq/L (135-145) (135-145) Potassium 3.8 mEq/L mEq/L 4.4 mEq/L mEq/L (3.3-5.0) (3.3-5.0) Chloride 109 mEq/L mEq/L 105 mEq/L mEq/L (97-110) (97-110) Carbon Dioxide 21 mEq/l L mEq/l 18 mEq/l L mEq/l (22-31) (22-31) Anion Gap 8 mEq/L mEq/L 12 mEq/L mEq/L (8-16) (8-16) BUN 19 mg/dL mg/dL 21 mg/dL mg/dL (7-23) (7-23) Creatinine 0.7 mg/dL mg/dL 0.8 mg/dL mg/dL (0.6-1.0) (0.6-1.0) Estimated GFR > 60 > 60 Glucose 174 mg/dL H mg/dL 420 mg/dL H mg/dL (70-100) (70-100) Calcium 8.8 mg/dL mg/dL 9.1 mg/dL mg/dL (8.5-10.4) (8.5-10.4) Lipase 258 IU/L IU/L (23-300) Urine Color YELLOW Urine Appearance CLEAR Urine pH 5.0 (5.0-7.5) Ur Specific Comer 1.027 (1.002-1.030) Urine Protein NEGATIVE (NEGATIVE) Urine Ketones TRACE H (NEGATIVE) Urine Blood NEGATIVE (NEGATIVE) Urine Nitrate NEGATIVE (NEGATIVE) Urine Bilirubin NEGATIVE (NEGATIVE) Urine Urobilinogen NEGATIVE EU EU (0.2-1.0) Ur Leukocyte Esterase NEGATIVE (NEGATIVE) Urine RBC 1-3 /hpf /hpf (0-3) Urine WBC 1-3 /hpf /hpf (0-3) Ur Epithelial Cells 1+ /lpf /lpf (NONE-1+) Urine Bacteria TRACE /hpf H /hpf (NONE SEEN) Urine Mucus TRACE /lpf /lpf (NONE-1+) Urine Glucose 3+ H (NEGATIVE) 06/25/18 19:49 WBC 13.52 10^3/uL H 10^3/uL (3.80-9.50) RBC 4.74 10^6/uL 10^6/uL (4.18-5.33) Hgb 15.1 g/dL g/dL (12.6-16.3) Hct 41.7 % % (38.0-47.0) MCV 88.0 fL fL (81.5-99.8) MCH 31.9 pg pg (27.9-34.1) MCHC 36.2 g/dL g/dL (32.4-36.7) RDW 12.2 % % (11.5-15.2) Plt Count 275 10^3/uL 10^3/uL (150-400) MPV 9.9 fL fL (8.7-11.7) Neut % (Auto) 74.3 % H % (39.3-74.2) Lymph % (Auto) 20.0 % % (15.0-45.0) [place] % (Auto) 4.4 % L % (4.5-13.0) Eos % (Auto) 0.8 % % (0.6-7.6) Baso % (Auto) 0.2 % L % (0.3-1.7) Nucleat RBC Rel Count 0.0 % % (0.0-0.2) Absolute Neuts (auto) 10.04 10^3/uL H 10^3/uL (1.70-6.50) Absolute Lymphs (auto) 2.71 10^3/uL 10^3/uL (1.00-3.00) Absolute Monos (auto) 0.59 10^3/uL 10^3/uL (0.30-0.80) Absolute Eos (auto) 0.11 10^3/uL 10^3/uL (0.03-0.40) Absolute Basos (auto) 0.03 10^3/uL 10^3/uL (0.02-0.10) Absolute Nucleated RBC 0.00 10^3/uL 10^3/uL (0-0.01) Immature Gran % 0.3 % % (0.0-1.1) Immature Gran # 0.04 10^3/uL 10^3/uL (0.00-0.10) Sodium Potassium Chloride Carbon Dioxide Anion Gap BUN Creatinine Estimated GFR Glucose Calcium Lipase Urine Color Urine Appearance Urine pH Ur Specific Comer Urine Protein Urine Ketones Urine Blood Urine Nitrate Urine Bilirubin Urine Urobilinogen Ur Leukocyte Esterase Urine RBC Urine WBC Ur Epithelial Cells Urine Bacteria Urine Mucus Urine Glucose Medications Given: Discontinued Medications Sodium Chloride (Ns) 1,000 mls @ 0 mls/hr IV EDNOW ONE; Wide Open PRN Reason: Protocol Stop: 06/25/18 19:54 Last Admin: 06/25/18 20:05 Dose: 1,000 mls Sodium Chloride (Ns) 1,000 mls @ 0 mls/hr IV ONCE ONE; Wide Open PRN Reason: Protocol Stop: 06/25/18 21:34 Last Admin: 06/25/18 21:43 Dose: 1,000 mls Insulin Human Regular (Humulin R) 10 unit IVP EDNOW ONE Stop: 06/25/18 21:13 Last Admin: 06/25/18 21:44 Dose: 10 unit Ondansetron HCl (Zofran) 4 mg IVP EDNOW ONE Stop: 06/25/18 19:54 Last Admin: 06/25/18 21:12 Dose: Not Given General Time Seen by Provider: 06/25/18 19:40 Initial Vital Signs: Initial Vital Signs Temperature (C) 36.7 C 06/25/18 19:46 Heart Rate 72 06/25/18 19:46 Respiratory Rate 20 06/25/18 19:46 Blood Pressure 167/110 H 06/25/18 19:46 O2 Sat (%) 96 06/25/18 19:46 O2 Delivery Mode Room Air Allergies/Adverse Reactions: No Known Allergies Allergy (Verified 12/02/17 13:36) Home Medications: Medication Instructions Recorded Blood Sugar Diagnostic [Glucose 1 each MC QID #120 strip 10/28/17 Test Strip] Insulin Glargine [Lantus 100 10 units SC DAILY 30 Days #1 vial 10/28/17 UNITS/ML (*)] Insulin Regular Human [novoLIN R] 2 - 6 unit SQ TID PRN 30 Days #1 10/28/17 vial Syrge-Ndl,Ins 0.3 ml Half Keegan 1 each MC QID #120 disp.syrin 10/28/17 [Insulin Syringe] Lisinopril 06/25/18 Ondansetron Odt [Zofran Odt 4 mg 4 mg PO Q6 PRN #8 tab 06/25/18 (RX)] Departure - Departure Disposition: Home, Routine, Self-Care Clinical Impression: Dehydration Diarrhea Qualifiers: Diarrhea type: unspecified type Qualified Code(s): R19.7 - Diarrhea, unspecified Nausea & vomiting Qualifiers: Vomiting type: unspecified Vomiting Intractability: non-intractable Qualified Code(s): R11.2 - Nausea with vomiting, unspecified DKA (diabetic ketoacidoses) Qualifiers: Diabetes mellitus type: type 1 Diabetes mellitus complication detail: without coma Qualified Code(s): E10.10 - Type 1 diabetes mellitus with ketoacidosis without coma Condition: Good Instructions: Diabetic Ketoacidosis (DC), Acute Nausea and Vomiting (ED), Acute Diarrhea (ED) Additional Instructions: Please drink plenty of fluids to stay hydrated. You have been provided with Zofran to use as needed for ongoing nausea or vomiting. Please continue to check her blood sugar and treat elevated glucose levels appropriately. Please follow up with your primary care physician as soon as possible. If you continued have ongoing diarrhea, a GI pathogen panel has been ordered. You may bring your stool to the lab here at [facility] for testing. Referrals: Jaycee Blacno MD [Primary Care Provider] - As per Instructions Prescriptions: Ondansetron Odt [Zofran Odt 4 mg (RX)] 4 mg PO Q6 PRN #8 tab PRN Reason: Nausea Report Scribed for: Kelly Mejia Report Scribed by: Margaux Sauceda Date of Report: 06/25/18 Time of Report: 21:07
[2018-06-25] MEDS ORDERED: ONDANSETRON 4 MG/2 ML VIAL IVP ONE (19:53)
[2018-06-25] MEDS ORDERED: NS 1,000 ML IV ONE ×2 (19:53→21:33)
[2018-06-25 20:02] LABS: PLATELET COUNT 275 10^3/uL (150-400)
[2018-06-25] MEDS ORDERED: INSULIN REGULAR HUMAN 100 UNIT/ML UNIT IVP ONE (21:12)
[2018-06-25] MEDS ORDERED: ONDANSETRON 4MG PREPACK#2 BTL TAKEHOME ONE (22:45)
[2018-06-26 00:33] VITALS: BP 158/100
== END 2018-06-26 00:31 | disposition home or self-care (01) ==
LOC: EDUNIT#
DX: R11.2 Nausea with vomiting, unspecified (principal); R19.7 Diarrhea, unspecified; E10.10 Type 1 diabetes mellitus with ketoacidosis without coma; E86.9 Volume depletion, unspecified; I10 Essential (primary) hypertension; Z59.0 Homelessness
CPT/HCPCS: 96361; 96374; 96375; 99284; J1815; J2405

== ENCOUNTER 2018-07-19 06:58 | Emergency (ER) | payer OTHER, MEDICAID ==
[2018-07-19] MEDS ORDERED: ONDANSETRON 4 MG/2 ML VIAL ONE (07:18)
[2018-07-19] MEDS ORDERED: METOCLOPRAMIDE 10 MG/2 ML VIAL IVP ONE (07:21)
[2018-07-19] MEDS ORDERED: MAG HYDROX/AL HYDROX/SIMETH 30 ML UDCUP PO ONE (07:21)
[2018-07-19] MEDS ORDERED: LIDOCAINE 2% VISCOUS 15 ML UDCUP PO ONE (07:21)
[2018-07-19] MEDS ORDERED: NS 1,000 ML IV ONE ×2 (07:21→08:00)
[2018-07-19] MEDS ORDERED: HYOSCYAMINE SULFATE 0.125 MG TAB PO ONE (07:21)
--- NOTE | 2018-07-19 07:25 | EDPHY ---
H & P Stated Complaint: abd pain Time Seen by Provider: 07/19/18 07:01 HPI/ROS: CHIEF COMPLAINT: Abdominal pain HISTORY OF PRESENT ILLNESS: 52-year-old female with diabetes status post cholecystectomy presents with upper abdominal pain. Onset of abdominal pain 6 weeks ago. The abdominal pain is fairly persistent and moderate. Associated with vomiting and loose stools. Concerned about parasites and took an over-the- counter medication for pinworms without relief. No fever. REVIEW OF SYSTEMS: complete 10 point ROS reviewed and is negative except for the noted elements in the HPI - Personal History Current Tetanus Diphtheria and Acellular Pertussis (TDAP): Unsure - Medical/Surgical History Hx Asthma: No Hx Chronic Respiratory Disease: No Hx Diabetes: Yes Hx Cardiac Disease: No Hx Renal Disease: No Hx Cirrhosis: No Hx Alcoholism: No Hx HIV/AIDS: No Hx Splenectomy or Spleen Trauma: No Other PMH: dm. hysterectomy. 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 HTN. staph inf in L leg, depression, anxiety. degen disk disease. gallbladder - Social History Smoking Status: Never smoked Additional Social History: Homeless - Physical Exam Exam: General Appearance: Alert, pleasant Eyes: Pupils equal and round, no conjunctival pallor or injection ENT, Mouth: Mucous membranes moist Neck: Normal inspection Respiratory: Lungs are clear to auscultation Cardiovascular: Regular rate and rhythm Gastrointestinal: Abdomen is soft, mild epigastric tenderness Neurological: A&O, nonfocal, normal gait Skin: Warm and dry, no rash Extremities: Normal inspection Psychiatric: Fluctuating affect, tearful at times Constitutional: Initial Vital Signs Temperature (C) 36.6 C 07/19/18 07:04 Heart Rate 98 07/19/18 07:04 Respiratory Rate 16 07/19/18 07:04 Blood Pressure 160/101 H 07/19/18 07:04 O2 Sat (%) 100 07/19/18 07:04 O2 Delivery Mode Room Air Allergies/Adverse Reactions: No Known Allergies Allergy (Verified 12/02/17 13:36) Home Medications: Medication Instructions Recorded Blood Sugar Diagnostic [Glucose 1 each MC QID #120 strip 10/28/17 Test Strip] Insulin Glargine [Lantus 100 10 units SC DAILY 30 Days #1 vial 10/28/17 UNITS/ML (*)] Insulin Regular Human [novoLIN R] 2 - 6 unit SQ TID PRN 30 Days #1 10/28/17 vial Syrge-Ndl,Ins 0.3 ml Half Keegan 1 each QID #120 disp.syrin 10/28/17 [Insulin Syringe] Lisinopril 06/25/18 Ondansetron Odt [Zofran Odt 4 mg 4 mg PO Q6 PRN #8 tab 06/25/18 (RX)] Metoclopramide [Reglan 10 mg tab 10 mg PO Q6 PRN #15 tab 07/19/18 (*)] Medical Decision Making ED Course/Re-evaluation: This patient presents with upper abdominal pain, vomiting and diarrhea for 6 weeks. Clinically she does not appear dehydrated and abdominal exam is benign. IV normal saline 1 L and Reglan 10 mg IV given. A GI cocktail was given. Stool sample sent. 8:25 a.m.-feels much better after IV fluids and Reglan. Abdomen soft and nontender. Tolerating oral fluids well. Will discharge home. Presentation c/ w gastroenteritis vs PUD. Follow up with PCP. Patient will call for GI pathogen panel results. Differential Diagnosis: Differential diagnosis includes though it is not limited to appendicitis, cholecystitis, diverticulitis, pyelonephritis, bowel perforation, small bowel obstruction. - Data Points Laboratory Results: Laboratory Results 07/19/18 07:18 07/19/18 07:18 07/19/18 07/19/18 07:18 07:18 WBC 12.69 10^3/uL H 10^3/uL (3.80-9.50) RBC 5.50 10^6/uL H 10^6/uL (4.18-5.33) Hgb 17.4 g/dL H g/dL (12.6-16.3) Hct 48.3 % H % (38.0-47.0) MCV 87.8 fL fL (81.5-99.8) MCH 31.6 pg pg (27.9-34.1) MCHC 36.0 g/dL g/dL (32.4-36.7) RDW 12.4 % % (11.5-15.2) Plt Count 325 10^3/uL 10^3/uL (150-400) MPV 9.7 fL fL (8.7-11.7) Neut % (Auto) 74.9 % H % (39.3-74.2) Lymph % (Auto) 18.8 % % (15.0-45.0) [place] % (Auto) 4.6 % % (4.5-13.0) Eos % (Auto) 1.0 % % (0.6-7.6) Baso % (Auto) 0.3 % % (0.3-1.7) Nucleat RBC Rel Count 0.0 % % (0.0-0.2) Absolute Neuts (auto) 9.50 10^3/uL H 10^3/uL (1.70-6.50) Absolute Lymphs (auto) 2.38 10^3/uL 10^3/uL (1.00-3.00) Absolute Monos (auto) 0.59 10^3/uL 10^3/uL (0.30-0.80) Absolute Eos (auto) 0.13 10^3/uL 10^3/uL (0.03-0.40) Absolute Basos (auto) 0.04 10^3/uL 10^3/uL (0.02-0.10) Absolute Nucleated RBC 0.00 10^3/uL 10^3/uL (0-0.01) Immature Gran % 0.4 % % (0.0-1.1) Immature Gran # 0.05 10^3/uL 10^3/uL (0.00-0.10) Sodium 139 mEq/L mEq/L (135-145) Potassium 4.3 mEq/L mEq/L (3.3-5.0) Chloride 105 mEq/L mEq/L (97-110) Carbon Dioxide 21 mEq/l L mEq/l (22-31) Anion Gap 13 mEq/L mEq/L (8-16) BUN 16 mg/dL mg/dL (7-23) Creatinine 0.8 mg/dL mg/dL (0.6-1.0) Estimated GFR > 60 Glucose 232 mg/dL H mg/dL (70-100) Calcium 9.8 mg/dL mg/dL (8.5-10.4) Total Bilirubin 0.8 mg/dL mg/dL (0.1-1.4) Conjugated Bilirubin 0.1 mg/dL mg/dL (0.0-0.5) Unconjugated Bilirubin 0.7 mg/dL mg/dL (0.0-1.1) AST 17 IU/L IU/L (14-46) ALT 25 IU/L IU/L (9-52) Alkaline Phosphatase 90 IU/L IU/L (38-126) Total Protein 7.5 g/dL g/dL (6.3-8.2) Albumin 4.5 g/dL g/dL (3.5-5.0) Lipase 126 IU/L IU/L (23-300) Microbiology Results: MICROBIOLOGY 07/19/18 08:05 Stool Gastrointestinal Tract Panel (PCR) - Final No Organism Detected Medications Given: Discontinued Medications Al Hydroxide/Mg Hydroxide (Maalox Susp) 30 ml PO ONCE ONE Stop: 07/19/18 07:22 Last Admin: 07/19/18 08:08 Dose: 30 ml Hyoscyamine Sulfate (Levsin, Hyomax-Sl) 0.25 mg PO ONCE ONE Stop: 07/19/18 07:22 Last Admin: 07/19/18 08:08 Dose: 0.25 mg Sodium Chloride (Ns) 1,000 mls @ 0 mls/hr IV EDNOW ONE; Wide Open PRN Reason: Protocol Stop: 07/19/18 07:22 Last Admin: 07/19/18 07:36 Dose: 1,000 mls Sodium Chloride (Ns) 1,000 mls @ 0 mls/hr IV ONCE ONE; Wide Open PRN Reason: Protocol Stop: 07/19/18 08:01 Last Admin: 07/19/18 08:13 Dose: 1,000 mls Lidocaine (Lidocaine 2% Viscous) 15 ml PO ONCE ONE Stop: 07/19/18 07:22 Last Admin: 07/19/18 08:08 Dose: 15 ml Metoclopramide HCl (Reglan Injection) 10 mg IVP EDNOW ONE Stop: 07/19/18 07:22 Last Admin: 07/19/18 07:36 Dose: 10 mg Departure - Departure Disposition: Home, Routine, Self-Care Clinical Impression: Epigastric pain Condition: Good Instructions: Epigastric Pain (ED) Additional Instructions: 1. Clear liquids for 24 hours. 2. Advance diet as tolerated. I suggest the BRAT diet to start: bananas, rice, applesauce and toast. 3. Take Zantac or Pepcid over the counter as directed on the packaging. 4. Return for worsening symptoms, persistent vomiting, increasing abdominal pain , any concerns. 5. Call in 3-4 hours for stool study results. Sometimes we are unable to diagnose an obvious cause of abdominal pain in the Emergency Department. Based upon our evaluation today, we see no obvious explanation for your pain. Because more serious conditions can be difficult to diagnose early in the course of their presentation, we ask that you return to the Emergency Department in 12-24 hours for a recheck if you are still having pain. This is necessary to exclude the development of a more serious condition such as appendicitis or other intra-abdominal emergency. In the event your pain markedly increases before that time or you develop intractable vomiting or fever return to the Emergency Department immediately. Referrals: [facility],. [Clinic] - As per Instructions (Call to make an appointment.) Prescriptions: Metoclopramide [Reglan 10 mg tab (*)] 10 mg PO Q6 PRN #15 tab PRN Reason: nausea
[2018-07-19 07:28] LABS: PLATELET COUNT 325 10^3/uL (150-400)
[2018-07-19 09:01] VITALS: BP 174/113
== END 2018-07-19 08:59 | disposition home or self-care (01) ==
LOC: EDUNIT#
DX: R10.13 Epigastric pain (principal); R19.7 Diarrhea, unspecified; R11.10 Vomiting, unspecified; E11.9 Type 2 diabetes mellitus without complications; E86.9 Volume depletion, unspecified; Z90.49 Acquired absence of other specified parts of digestive tract; Z79.4 Long term (current) use of insulin
CPT/HCPCS: 96361; 96374; 99284; J2405; J2765